=== PATIENT | female | born 1955 | race Caucasian/White ===

== ENCOUNTER 2021-09-24 12:25 | Inpatient (IN) | payer BC, OTHER ==
[2021-09-24 12:54] LABS: Glucose,Whole Blood 86 mg/dL (70-110)
[2021-09-24 13:08] LABS: Basophils # (A) 0.1 k/uL (0-0.2); Basophils % (A) 1 %; Eosinophils # (A) 0.2 k/uL (0-0.7); Eosinophils % (A) 3 %; HCT 46.5 % (34.0-46.0); HGB 15.3 gm/dL (11.4-16.0); Lymphocytes # (A) 2.5 k/uL (1.0-4.8); Lymphocytes % (A) 32 %; MCH 29.6 pg (25.0-35.0); MCHC 32.9 g/dL (31.0-37.0); MCV 90.2 fL (80.0-100.0); Mean Platelet Volume 6.9; Monocytes # (A) 0.3 k/uL (0-1.0); Monocytes % (A) 4 %; Neutrophils # (A) 4.4 k/uL (1.3-7.7); Neutrophils % (A) 58 %; Platelet Count 304 k/uL (150-450); RBC 5.15 m/uL (3.80-5.40); RDW 12.7 % (11.5-15.5); WBC 7.7 k/uL (3.8-10.6)
[2021-09-24 13:23] LABS: Albumin 4.8 g/dL (3.5-5.0); Calcium 9.5 mg/dL (8.4-10.2); Potassium 4.8 mmol/L (3.5-5.1); Total Bilirubin 0.7 mg/dL (0.2-1.3); Total Protein 7.6 g/dL (6.3-8.2)
[2021-09-24 13:25] LABS: INR 0.9 (<1.2); Partial Thromboplastin Time 25.3 sec (22.0-30.0)
--- NOTE | 2021-09-24 13:38 | CT ---
EXAMINATION TYPE: CT brain wo con for TPA CT DLP: 1059 mGycm, Automated exposure control for dose reduction was used. DATE OF EXAM: 09/24/2021 1:03 PM COMPARISON: None. CLINICAL INDICATION:Female, 65 years old with history of Neuro deficit, acute, stroke suspected, incr eased confusion since 10 AM this morning TECHNIQUE: Brain: Multiple axial CT images of the brain were obtained without IV contrast. FINDINGS: Brain: Extra-axial spaces: No abnormal extra-axial fluid collections. Ventricular system: Within normal limits Cerebral parenchyma: No acute intraparenchymal hemorrhage or mass effect. The holliday-white junction is well differentiated. Cerebellum: Unremarkable. Mass effect: No evidence of midline shift. Intracranial vasculature: Atherosclerotic calcifications of the intracranial vessels. Soft tissues: Normal. Calvarium/osseous structures: No depressed skull fracture. Paranasal sinuses and mastoid air cells: Mild scattered paranasal sinus disease. Visualized orbits: Orbital contents are intact. IMPRESSION: No acute intracranial process.
[2021-09-24 13:39] LABS: Appearance,Urine Clear (Clear); Bilirubin,Urine Negative (Negative); Blood,Urine Negative (Negative); Color,Urine Colorless; Glucose,Urine (UA) Negative (Negative); Ketones,Urine Negative (Negative); Leukocyte Esterase,Urine Negative (Negative); Nitrite,Urine Negative (Negative); Protein,Urine Negative (Negative); Specific Gravity,Urine 1.013 (1.001-1.035); Urobilinogen,Urine <2.0 mg/dL (<2.0)
--- NOTE | 2021-09-24 13:41 | XR ---
EXAMINATION TYPE: XR chest 2V DATE OF EXAM: 09/24/2021 1:07 PM COMPARISON: None TECHNIQUE: XR chest 2V Frontal and lateral views of the chest. CLINICAL INDICATION:Female, 65 years old with history of altered mental status; FINDINGS: Lungs/Pleura: There is no evidence of pleural effusion, focal consolidation, or pneumothorax. Pulmonary vascularity: Unremarkable. Heart/mediastinum: Cardiomediastinal silhouette is unremarkable. Musculoskeletal: No acute osseous pathology. IMPRESSION: No acute cardiopulmonary disease/process.
--- NOTE | 2021-09-24 13:54 | ED ---
General Adult HPI - General Chief complaint: Altered Mental Status Stated complaint: confusion Time Seen by Provider: 09/24/21 12:37 Source: patient, RN notes reviewed, old records reviewed Mode of arrival: ambulatory Limitations: no limitations - History of Present Illness Initial comments: She is a 65-year-old female with a syncopal past medical history who presents to the emergency Department complaining of difficulty with word finding. She has no past medical history. Is not on blood thinners. Denies trauma. Last known well was last night around 2300 or 0100. This was approximately 12 hours ago. Patient states she has felt okay this morning but did not talk with anyone. Initially she started to try to talk to someone at approximately 10 AM, she noticed that she was having difficulty with word finding. Family noticed that as well then, however uncertain if she had it before then when she awoke at 8 AM, as she does not speak with anyone until 10 AM. She denies any headache, weakness, numbness. Denies chest pain, shortness breath, abdominal pain, nausea, vomiting. Does smoke a small amount of marijuana last night which is not abnormal for her. The only significant past medical history is intermittent vertiginous episodes over the last 6 months to one year. No recent ones per patient. History is obtained from patient as well as family members are at bedside. - Related Data Home Medications Medication Instructions Recorded Confirmed No Known Home Medications 09/24/21 09/24/21 Allergies Allergy/AdvReac Type Severity Reaction Status Date / Time No Known Allergies Allergy Verified 09/24/21 13:36 Review of Systems ROS Statement: Those systems with pertinent positive or pertinent negative responses have been documented in the HPI. Review of Systems: CONST: Denies fever EYES: Denies blurry vision ENT: Denies nasal congestion C/V: Denies Chest pain RESP: Denies shortness of breath GI: Denies abdominal pain : Denies dysuria SKIN: Denies rash. MSK: Denies joint pain. NEURO: Denies headache ROS Other: All systems not noted in ROS Statement are negative. Past Medical History Past Medical History: No Reported History History of Any Multi-Drug Resistant Organisms: None Reported Past Surgical History: No Surgical Hx Reported Past Psychological History: No Psychological Hx Reported Smoking Status: Current every day smoker Past Alcohol Use History: None Reported Past Drug Use History: Marijuana General Exam - General Exam Comments Initial Comments: General: Appears in no acute distress. HEAD: Normal with no signs of head trauma. EYES: PERRLA, EOMI, conjunctiva normal, no discharge. pupils are 3 mm equal bilaterally. ENT: Hearing grossly intact, normal oropharynx. RESPIRATORY: Clear breath sounds bilaterally. No wheezes, rales, or rhonchi. C/V: Regular rate and rhythm. S1 and S2 auscultated, no edema, peripheral pulses 2+ and intact throughout ABD: Abd is soft, nontender, nondistended EXT: Normal range of motion, no obvious deformity SKIN: No rashes or lesions observed on exposed skin. NEURO: Alert and oriented x 4. Cranial nerves II-XII intact. No focal sensory or strength deficits. NIH of 2, 1 point for aphasia, 1 point for unable to answer age. Able to ambulate without issue. Limitations: no limitations Course Vital Signs 09/24/21 09/24/21 09/24/21 12:33 14:00 16:00 Temperature 98.2 F Pulse Rate 72 65 70 Respiratory 18 18 18 Rate Blood Pressure 146/74 124/84 124/61 O2 Sat by Pulse 99 96 96 Oximetry 09/24/21 17:03 Temperature Pulse Rate 64 Respiratory 18 Rate Blood Pressure 132/81 O2 Sat by Pulse 96 Oximetry Medical Decision Making - Medical Decision Making Based on the patient's presentation and physical exam, I'm concerned for possible stroke and the patient. Last known well was at [id number] last night when she went to sleep. Woke up with an NIH of 2 discovered at 10 AM. No trauma. No blood thinners. Patient is not TPA candidate as risks far outweigh the benefits at this point. Code stroke was activated. Point of care blood sugar was within normal limits. I spoke with Dr. Amaral of neuro critical care who is in agreement this plan. Vital signs are within normal limits. EKG shows no signs of acute ischemia. CT brain shows no intracranial process. Chest x-ray reveals no acute cardiopulmonary process. Laboratory studies are remarkable for an undetectable troponin. UDS is positive for marijuana. No other findings. CT angiogram reveals an occluded right common carotid as well as left internal carotid artery. I discussed the findings with the neuro interventional was on- call, Dr. Amaral. He reviewed the images himself. Believes these are chronic findings. There are no intracranial findings other than the carotid artery findings. States there is no acute intervention to be done at this time. Recommended medical management with aspirin, Brilinta, statin therapy. Recommended admission for neurology evaluation. Recommended follow-up with the neuro interventional's group outpatient. Patient was bolused aspirin and Brilinta and started on a statin as well as twice a day Brilinta and daily aspirin. I updated the patient of the findings on imaging. NIH is improved to 1 at this time, for mild aphasia, with difficul ty with word finding and object identification. I discussed admission for MRI and neuro eval. She was in agreement with this plan.Vital signs remained within normal limits throughout her stay in the department. I spoke with Dr. Prather of neurology on-call who was in agreement with the consult and the plan. I spoke with the admitting physician, Dr. Parra of some physician group who accepted the patient. Patient was admitted in stable condition to a telemetry bed. Continue neurological checks. I did the family and extensively answered any questions that they had. They were in agreement w ith this plan. - Lab Data Result diagrams: 09/24/21 12:56 09/24/21 12:56 Lab Results 09/24/21 09/24/21 09/24/21 Range/Units 12:53 12:56 12:56 WBC 7.7 (3.8-10.6) k/uL RBC 5.15 (3.80-5.40) m/uL Hgb 15.3 (11.4-16.0) gm/dL Hct 46.5 H (34.0-46.0) % MCV 90.2 (80.0-100.0) fL MCH 29.6 (25.0-35.0) pg MCHC 32.9 (31.0-37.0) g/dL RDW 12.7 (11.5-15.5) % Plt Count 304 (150-450) k/uL MPV 6.9 Neutrophils % 58 % Lymphocytes % 32 % Monocytes % 4 % Eosinophils % 3 % Basophils % 1 % Neutrophils # 4.4 (1.3-7.7) k/uL Lymphocytes # 2.5 (1.0-4.8) k/uL Monocytes # 0.3 (0-1.0) k/uL Eosinophils # 0.2 (0-0.7) k/uL Basophils # 0.1 (0-0.2) k/uL PT 10.0 (9.0-12.0) sec INR 0.9 (<1.2) APTT 25.3 (22.0-30.0) sec Sodium (137-145) mmol/L Potassium (3.5-5.1) mmol/L Chloride (98-107) mmol/L Carbon Dioxide (22-30) mmol/L Anion Gap mmol/L BUN (7-17) mg/dL Creatinine (0.52-1.04) mg/dL Est GFR (CKD-EPI)AfAm (>60 ml/min/1.73 sqM) Est GFR (CKD-EPI)NonAf (>60 ml/min/1.73 sqM) Glucose (74-99) mg/dL POC Glucose (mg/dL) 86 (70-110) mg/dL POC Glu Emblem Maker ID Artie Silva Calcium (8.4-10.2) mg/dL Total Bilirubin (0.2-1.3) mg/dL AST (14-36) U/L ALT (4-34) U/L Alkaline Phosphatase (38-126) U/L Ammonia (<30) umol/L Troponin I (0.000-0.034) ng/mL Total Protein (6.3-8.2) g/dL Albumin (3.5-5.0) g/dL Urine Color Urine Appearance (Clear) Urine pH (5.0-8.0) Ur Specific [place] (1.001-1.035) Urine Protein (Negative) Urine Glucose (UA) (Negative) Urine Ketones (Negative) Urine Blood (Negative) Urine Nitrite (Negative) Urine Bilirubin (Negative) Urine Urobilinogen (<2.0) mg/dL Ur Leukocyte Esterase (Negative) Urine Opiates Screen (NotDetected) Ur Oxycodone Screen (NotDetected) Urine Methadone Screen (NotDetected) Ur Propoxyphene Screen (NotDetected) Ur Barbiturates Screen (NotDetected) U Tricyclic Antidepress (NotDetected) Ur Phencyclidine Scrn (NotDetected) Ur Amphetamines Screen (NotDetected) U Methamphetamines Scrn (NotDetected) U Benzodiazepines Scrn (NotDetected) Urine Cocaine Screen (NotDetected) U Marijuana (THC) Screen (NotDetected) 09/24/21 09/24/21 09/24/21 Range/Units 12:56 12:56 12:56 WBC (3.8-10.6) k/uL RBC (3.80-5.40) m/uL Hgb (11.4-16.0) gm/dL Hct (34.0-46.0) % MCV (80.0-100.0) fL MCH (25.0-35.0) pg MCHC (31.0-37.0) g/dL RDW (11.5-15.5) % Plt Count (150-450) k/uL MPV Neutrophils % % Lymphocytes % % Monocytes % % Eosinophils % % Basophils % % Neutrophils # (1.3-7.7) k/uL Lymphocytes # (1.0-4.8) k/uL Monocytes # (0-1.0) k/uL Eosinophils # (0-0.7) k/uL Basophils # (0-0.2) k/uL PT (9.0-12.0) sec INR (<1.2) APTT (22.0-30.0) sec Sodium 139 (137-145) mmol/L Potassium 4.8 (3.5-5.1) mmol/L Chloride 106 (98-107) mmol/L Carbon Dioxide 25 (22-30) mmol/L Anion Gap 8 mmol/L BUN 14 (7-17) mg/dL Creatinine 0.94 (0.52-1.04) mg/dL Est GFR (CKD-EPI)AfAm 75 (>60 ml/min/1.73 sqM) Est GFR (CKD-EPI)NonAf 65 (>60 ml/min/1.73 sqM) Glucose 91 (74-99) mg/dL POC Glucose (mg/dL) (70-110) mg/dL POC Glu Emblem Maker ID Calcium 9.5 (8.4-10.2) mg/dL Total Bilirubin 0.7 (0.2-1.3) mg/dL AST 20 (14-36) U/L ALT 15 (4-34) U/L Alkaline Phosphatase 129 H (38-126) U/L Ammonia <9 (<30) umol/L Troponin I <0.012 (0.000-0.034) ng/mL Total Protein 7.6 (6.3-8.2) g/dL Albumin 4.8 (3.5-5.0) g/dL Urine Color Urine Appearance (Clear) Urine pH (5.0-8.0) Ur Specific [place] (1.001-1.035) Urine Protein (Negative) Urine Glucose (UA) (Negative) Urine Ketones (Negative) Urine Blood (Negative) Urine Nitrite (Negative) Urine Bilirubin (Negative) Urine Urobilinogen (<2.0) mg/dL Ur Leukocyte Esterase (Negative) Urine Opiates Screen (NotDetected) Ur Oxycodone Screen (NotDetected) Urine Methadone Screen (NotDetected) Ur Propoxyphene Screen (NotDetected) Ur Barbiturates Screen (NotDetected) U Tricyclic Antidepress (NotDetected) Ur Phencyclidine Scrn (NotDetected) Ur Amphetamines Screen (NotDetected) U Methamphetamines Scrn (NotDetected) U Benzodiazepines Scrn (NotDetected) Urine Cocaine Screen (NotDetected) U Marijuana (THC) Screen (NotDetected) 09/24/21 Range/Units 13:14 WBC (3.8-10.6) k/uL RBC (3.80-5.40) m/uL Hgb (11.4-16.0) gm/dL Hct (34.0-46.0) % MCV (80.0-100.0) fL MCH (25.0-35.0) pg MCHC (31.0-37.0) g/dL RDW (11.5-15.5) % Plt Count (150-450) k/uL MPV Neutrophils % % Lymphocytes % % Monocytes % % Eosinophils % % Basophils % % Neutrophils # (1.3-7.7) k/uL Lymphocytes # (1.0-4.8) k/uL Monocytes # (0-1.0) k/uL Eosinophils # (0-0.7) k/uL Basophils # (0-0.2) k/uL PT (9.0-12.0) sec INR (<1.2) APTT (22.0-30.0) sec Sodium (137-145) mmol/L Potassium (3.5-5.1) mmol/L Chloride (98-107) mmol/L Carbon Dioxide (22-30) mmol/L Anion Gap mmol/L BUN (7-17) mg/dL Creatinine (0.52-1.04) mg/dL Est GFR (CKD-EPI)AfAm (>60 ml/min/1.73 sqM) Est GFR (CKD-EPI)NonAf (>60 ml/min/1.73 sqM) Glucose (74-99) mg/dL POC Glucose (mg/dL) (70-110) mg/dL POC Glu Emblem Maker ID Calcium (8.4-10.2) mg/dL Total Bilirubin (0.2-1.3) mg/dL AST (14-36) U/L ALT (4-34) U/L Alkaline Phosphatase (38-126) U/L Ammonia (<30) umol/L Troponin I (0.000-0.034) ng/mL Total Protein (6.3-8.2) g/dL Albumin (3.5-5.0) g/dL Urine Color Colorless Urine Appearance Clear (Clear) Urine pH 6.0 (5.0-8.0) Ur Specific [place] 1.013 (1.001-1.035) Urine Protein Negative (Negative) Urine Glucose (UA) Negative (Negative) Urine Ketones Negative (Negative) Urine Blood Negative (Negative) Urine Nitrite Negative (Negative) Urine Bilirubin Negative (Negative) Urine Urobilinogen <2.0 (<2.0) mg/dL Ur Leukocyte Esterase Negative (Negative) Urine Opiates Screen Not Detected (NotDetected) Ur Oxycodone Screen Not Detected (NotDetected) Urine Methadone Screen Not Detected (NotDetected) Ur Propoxyphene Screen Not Detected (NotDetected) Ur Barbiturates Screen Not Detected (NotDetected) U Tricyclic Antidepress Not Detected (NotDetected) Ur Phencyclidine Scrn Not Detected (NotDetected) Ur Amphetamines Screen Not Detected (NotDetected) U Methamphetamines Scrn Not Detected (NotDetected) U Benzodiazepines Scrn Not Detected (NotDetected) Urine Cocaine Screen Not Detected (NotDetected) U Marijuana (THC) Screen Detected H (NotDetected) - EKG Data -: EKG Interpreted by Nc EKG Comments: 12-lead Electrocardiogram Interpretation Note EKG was reviewed and interpreted by myself. 12-lead ECG performed at 1331 is interpreted by me as revealing and incomplete right bundle branch block at a rate of 66 beats per minute. [place] is normal. VT interval is 136 seconds, QRS duration is 101 ms, QTc is 412 ms.. There were no ST or T wave abnormalities to suggest myocardial ischemia or injury. R wave progression across the precordium was satisfactory. By my interpretation this EKG is non-diagnostic for acute ischemia. Critical Care Time Critical Care Time: Yes Total Critical Care Time: 35 Critical Care Time: Upon my evaluation, this patient had a high probability of imminent or life- threatening deterioration due to stroke pager activation, CVA, which required my direct attention, intervention, and personal management. I have personally provided 35 minutes of critical care time exclusive of time spent on separately billable procedures. Time includes review of laboratory data, radiology results, discussion with consultants, and monitoring for potential decompensation. Interventions were performed as documented in my note. Disposition Clinical Impression: CVA (cerebral vascular accident), Aphasia, Carotid occlusion, bilateral Disposition: ADMITTED IP TO THIS [facility] Condition: Serious Time of Disposition: 15:00
[2021-09-24 13:55] LABS: Amphetamine Screen,Urine Not Detected (NotDetected); Barbiturate Screen,Urine Not Detected (NotDetected); Benzodiazepines Screen,Urine Not Detected (NotDetected); Cocaine Screen,Urine Not Detected (NotDetected); Methadone Screen, Urine Not Detected (NotDetected); Opiate Screen,Urine Not Detected (NotDetected); Oxycodone Screen, Urine Not Detected (NotDetected); Phencyclidine Screen,Urine Not Detected (NotDetected); Tricyclic Antidepressant,Urine Not Detected (NotDetected); Urn Cannabinoid Scrn Detected (NotDetected)
--- NOTE | 2021-09-24 14:26 | CT ---
EXAMINATION TYPE: CT angio head neck CT DLP: 337 mGycm, Automated exposure control for dose reduction was used. DATE OF EXAM: 09/24/2021 1:44 PM COMPARISON: CT brain same day.. CLINICAL INDICATION:Female, 65 years old with history of Neuro deficit, acute, stroke suspected incre ased confusion since 10 AM this morning TECHNIQUE: Axially acquired helical CT angiogram of the head and neck was obtained with contrast util izing 65 cc of Isovue-370 administered intravenously. Axial images are supplemented with 3D reconstru ctions which were post-processed at an independent workstation. NASCET criteria used. FINDINGS: CTA HEAD: No evidence of acute intracranial hemorrhage, mass effect, or midline shift. The ventricles, sulci, a nd cisterns are unremarkable. The visualized portions middle cerebral arteries, anterior cerebral arteries, and posterior cerebral arteries are patent. The basilar and vertebral arteries are patent. CTA NECK: Right Carotid System: The right common carotid artery is occluded extending just past its origin to the bifurcation. There is likely backfilling of the internal carotid artery to the [place]. External carotid artery is patent. Left Carotid System: Occluded left internal carotid artery extending from its origin into the intracranial portion. The an terior communicating Vertebral arteries are patent without evidence hemodynamically significant stenosis. There is a three-vessel aortic arch. The origins of the great vessels are patent. No evidence of hemo dynamically significant stenosis. Mild paraseptal emphysema changes in the lung apices. IMPRESSION: 1. Occluded right common carotid artery extending from its origin to the bifurcation and likely backf illing through the [place] to the internal carotid artery and external carotid artery. 2. Occluded left internal carotid artery extending a from its origin to the intracranial portion. 3. The vertebral arteries are patent.
[2021-09-24] MEDS ORDERED: ASPIRIN 325 MG TAB PO STA (15:25)
[2021-09-24] MEDS ORDERED: TICAGRELOR 90 MG TAB PO STA (15:28)
[2021-09-24] MEDS: ATORVASTATIN 40 MG TAB PO SCH (16:19)
--- NOTE | 2021-09-24 16:32 | P.HPIM ---
History of Present Illness History of Physical illness 65 years old female who does not take any regular home medications, has history of smoking more than 1 pack a day for last 40 years, was never diagnosed with COPD or any bleeding issues in the past, apparently was at home with , she was noted to have some word finding difficulty which was significant when the symptoms started this morning and then later on her symptoms are getting better but she still has some word finding difficulty no neurologically significant symptoms otherwise, patient came to ER for evaluation, patient had CT head CT angiography head and neck done in emergency department, CT head showed no acute intracranial process. CT angiogram head and neck showed bilateral carotid artery occlusion, by the time I evaluated the patient in emergency department she was not having any major speaking difficulty but she was still having some word finding difficulties. Patient continues to smoke 1-1-1/2 pack a day cigarettes for more than 40 years, she also smokes marijuana doesn't drink lives with family, she is being admitted to the hospital medicine service for further workup and neurological evaluation Review of system. 14 point review of system was done in detail and is negative except as above in HPI. Physical examination General: non toxic, no acute distress, alert oriented to time place and person Head: atraumatic, normocephalic, symmetric Eyes: no lid lesion], anicteric sclera Mouth: no lip lesion, mucus membranes moist Cardiovascular: S1S2 reg rate and rhythm, no murmur, no gallop Lungs: Bilateral equal air entry, no wheezing no rhonchi no crackles. Abdominal: soft, nontender to palpation, no guarding, no appreciable organomegaly Ext: no gross muscle atrophy, no edema extremities warm to suppose a positive Neuro: Alert oriented to time place and person, exam grossly nonfocal Psych: Mood and affect appropriate, patient not so certain Skin exam: No rashes no jaundice. Assessment and plan Acute ischemic CVA/TIA Cannot exclude CVA, patient still having some symptoms, CT head was negative We'll get MRI had an echocardiogram Starting patient on aspirin brilinta and statin Continue cardiac telemetry Check TSH hemoglobin A1c lipid panel We'll request neurology consultation and vascular surgery consultation as below Carotid artery disease Bilateral carotid artery occlusion per CT angiogram head and neck We'll request vascular surgery evaluation Tobacco abuse Appropriate counseling done, encourage patient to quit smoking Marijuana use Patient smokes half joint a day per daughter at bedside, encouraged to quit smoking CODE STATUS: Full code DVT prophylaxis: Subcutaneous heparin Discharge plan: Pending clinical improvement and workup, will need neurology service before discharge Past Medical History Past Medical History: No Reported History History of Any Multi-Drug Resistant Organisms: None Reported Past Surgical History: No Surgical Hx Reported Past Psychological History: No Psychological Hx Reported Smoking Status: Current every day smoker Past Alcohol Use History: None Reported Past Drug Use History: Marijuana Medications and Allergies Home Medications Medication Instructions Recorded Confirmed Type No Known Home Medications 09/24/21 09/24/21 History Allergies Allergy/AdvReac Type Severity Reaction Status Date / Time No Known Allergies Allergy Verified 09/24/21 13:36 Physical Exam Vitals: Vital Signs Temp Pulse Resp BP Pulse Ox 09/24/21 16:00 70 18 124/61 96 09/24/21 12:33 98.2 F 72 18 146/74 99 Intake and Output 09/24/21 09/24/21 09/24/21 06:59 14:59 22:59 Other: Weight 60.328 kg Results CBC & Chem 7: 09/24/21 12:56 09/24/21 12:56 Labs: Abnormal Lab Results - Last 24 Hours (Table) 09/24/21 09/24/21 09/24/21 Range/Units 12:56 12:56 13:14 Hct 46.5 H (34.0-46.0) % Alkaline Phosphatase 129 H (38-126) U/L U Marijuana (THC) Screen Detected H (NotDetected)
[2021-09-24] MEDS: TICAGRELOR 90 MG TAB PO SCH (20:45)
[2021-09-25 05:29] LABS: Glucose,Whole Blood 89 mg/dL (70-110)
[2021-09-25] MEDS ORDERED: SODIUM CHLORIDE 0.9% 500 ML 500 ML IV ONE (05:42)
--- NOTE | 2021-09-25 06:31 | CT ---
EXAMINATION TYPE: CT brain wo con DATE OF EXAM: 09/25/2021 HISTORY: Acute onset neuro deficits. Increased confusion.. CT DLP: 1070.4 mGycm. Automated Exposure Control for Dose Reduction was Utilized. TECHNIQUE: CT scan of the head is performed without contrast. COMPARISON: CT brain one day earlier. FINDINGS: There is no acute intracranial hemorrhage or midline shift identified. Ventricles and sul ci are normal in size for patient's age. Jiménez-white matter differentiation maintained. The globes ar e intact and the visualized sinuses remain clear. IMPRESSION: Unremarkable study. No significant change from prior.
[2021-09-25 08:01] LABS: Basophils % (A) 1 %; Eosinophils # (A) 0.2 k/uL (0-0.7); Eosinophils % (A) 4 %; HCT 41.1 % (34.0-46.0); HGB 13.4 gm/dL (11.4-16.0); Lymphocytes # (A) 1.3 k/uL (1.0-4.8); Lymphocytes % (A) 21 %; MCH 29.6 pg (25.0-35.0); MCHC 32.7 g/dL (31.0-37.0); MCV 90.5 fL (80.0-100.0); Mean Platelet Volume 6.9; Monocytes # (A) 0.3 k/uL (0-1.0); Monocytes % (A) 5 %; Neutrophils # (A) 4.3 k/uL (1.3-7.7); Neutrophils % (A) 68 %; Platelet Count 264 k/uL (150-450); RBC 4.54 m/uL (3.80-5.40); RDW 12.8 % (11.5-15.5); WBC 6.3 k/uL (3.8-10.6)
[2021-09-25 08:06] LABS: Calcium 8.5 mg/dL (8.4-10.2); Potassium 4.2 mmol/L (3.5-5.1)
[2021-09-25 09:49] LABS: Chol/HDL Ratio 3.97 Ratio; LDL Cholesterol,Calculated 159.4 mg/dL (0.0-131.0)
[2021-09-25] MEDS: HEPARIN SODIUM,PORCINE/PF 5,000 UNIT/0.5 ML SYRINGE SQ SCH ×3 (10:18→23:30)
[2021-09-25] MEDS: ATORVASTATIN 40 MG TAB PO SCH (10:18)
[2021-09-25] MEDS: TICAGRELOR 90 MG TAB PO SCH ×2 (10:18→20:42)
[2021-09-25] MEDS: ASPIRIN 81 MG PO SCH (10:18)
--- NOTE | 2021-09-25 10:54 | P.PN ---
Subjective Patient was examined at bedside with . Overnight patient started to develop a fascia with right-sided drooling. A stat computed tomography scan was ordered which was unremarkable. Patient continues to have the same deficits she is able to understand follow my commands however unable to speak. She does unfortunately feel somewhat frustrated. Muscle strength is 45 both upper and lower extremity. MRI has been ordered and pending changed to stat. We have also waiting on neurology recommendations. Objective - Vital Signs Vital signs: Vital Signs Temp 97.9 F 09/25/21 08:00 Pulse 61 09/25/21 08:00 Resp 16 09/25/21 08:00 BP 128/68 09/25/21 08:00 Pulse Ox 97 09/25/21 08:00 FiO2 Intake & Output 09/24/21 09/25/21 09/25/21 18:59 06:59 18:59 Intake Total 540 Balance 540 Weight 59 kg Intake: Oral 540 Other: # Voids 2 - Exam General: Patient seems nontoxic however a phasic and looks frustrated Head: atraumatic, normocephalic, symmetric Eyes: no lid lesion], anicteric sclera Mouth: Drooling from the right side Cardiovascular: S1S2 reg rate and rhythm, no murmur, no gallop Lungs: Bilateral equal air entry, no wheezing no rhonchi no crackles. Abdominal: soft, nontender to palpation, no guarding, no appreciable organomegaly Ext: no gross muscle atrophy, no edema extremities warm to suppose a positive Neuro: -Patient is completely a phasic however able to understand -Muscle strength 5 out of 5 upper and lower extremity -No sensory abnormalities noted -Gait was not assessed due to safety -Right-sided facial drool noted very minimal droop if any. -Psych: Seems very frustrated - Labs CBC & Chem 7: 09/25/21 07:40 09/25/21 07:40 Labs: Abnormal Lab Results - Last 24 Hours (Table) 09/24/21 09/24/21 09/24/21 Range/Units 12:56 12:56 12:56 Hct 46.5 H (34.0-46.0) % Chloride (98-107) mmol/L Alkaline Phosphatase 129 H (38-126) U/L Triglycerides 153.00 H (0.00-149.00) mg/dL Cholesterol 254.00 H (0.00-200.00) mg/dL LDL Cholesterol, Calc 159.4 H (0.0-131.0) mg/dL HDL Cholesterol 64.00 H (40.00-60.00) mg/dL U Marijuana (THC) Screen (NotDetected) 09/24/21 09/25/21 Range/Units 13:14 07:40 Hct (34.0-46.0) % Chloride 109 H (98-107) mmol/L Alkaline Phosphatase (38-126) U/L Triglycerides (0.00-149.00) mg/dL Cholesterol (0.00-200.00) mg/dL LDL Cholesterol, Calc (0.0-131.0) mg/dL HDL Cholesterol (40.00-60.00) mg/dL U Marijuana (THC) Screen Detected H (NotDetected) Assessment and Plan Assessment: Acute ischemic CVA/TIA CT repeat was completed no acute changes noted Patient is getting MRI completed right now 2-D echocardiogram Starting patient on aspirin brilinta and statin Continue cardiac telemetry Check TSH hemoglobin A1c 5.4 lipid panel reviewed LDL target less than 100 Pending evaluation by neurology and vascular surgery PT/OT, nothing by mouth for now swallow evaluation/speech therapy Carotid artery disease Bilateral carotid artery occlusion per CT angiogram head and neck We'll request vascular surgery evaluation Tobacco abuse Appropriate counseling done, encourage patient to quit smoking Marijuana use Patient smokes half joint a day per daughter at bedside, encouraged to quit smoking Hyperlipidemia Continue with high intensity statin CODE STATUS: Full code DVT prophylaxis: Subcutaneous heparin Discharge plan: Pending clinical improvement and workup, will need neurology service before discharge
--- NOTE | 2021-09-25 11:04 | MR ---
EXAMINATION TYPE: MR brain wo con DATE OF EXAM: 09/25/2021 COMPARISON: CT brain from yesterday and today. HISTORY: Neuro deficit, acute, stroke suspected TECHNIQUE: Multiplanar, multisequence imaging of the brain and brainstem is performed without IV cont rast. FINDINGS: Diffusion weighted images demonstrate areas of increased signal on diffusion weighted images with dim inished signal on ADC mapping involving the left frontal lobe being somewhat wedge-shaped having T2 h yperintensity measuring approximately 3.5 x 3.8 cm axial image 168. Additional smaller subcortical ar ea of increased signal on diffusion-weighted images with increased signal on FLAIR imaging and some a reas of diminished signal ADC mapping involving the central left frontal lobe along the interhemisphe karla fissure. Findings are consistent with evolving acute infarcts. The ventricular system and cisternal spaces are normal in size and appearance. The brain volume is a ge appropriate. Small scattered foci of T2 hyperintensity is seen throughout the white matter bilater ally. Approximately 20-25 scattered small lesions are seen. Lesions are nonspecific in appearance and distribution. Midline structures demonstrate normal morphology. The craniocervical junction appears within normal limits. Normal vascular flow voids are present. The visualized sinuses are clear and the globes are i ntact. IMPRESSION: 1. There are 2 evolving infarcts in the left frontal lobe, one in the anterior watershed region, seco nd more anteriorly along the anterior interhemispheric fissure. 2. Background of mild chronic small vessel ischemic changes are present.
--- NOTE | 2021-09-25 11:13 | CA ---
Transthoracic Echo Report Name: Mehran Aguirre Age: 65 Gender: F : 1955 Exam Date: 09/25/2021 09:31 Exam Location: [facility] Ht (in): 66 Wt (lb): 130 Ordering Physician: Pedro Pablo Parra MD Attending/Referring Phys: Retail Supervisor Deanna Rosado RDCS Procedure CPT: Indications: CVA Cardiac Hx: smoker Technical Quality: Good Contrast 1: Total Dose (mL): Contrast 2: Total Dose (mL): MEASUREMENTS (Male / Female) Normal Values 2D ECHO LV Diastolic Diameter PLAX 3.4 cm 4.2 - 5.9 / 3.9 - 5.3 cm LV Systolic Diameter PLAX 1.9 cm IVS Diastolic Thickness 0.7 cm 0.6 - 1.0 / 0.6 - 0.9 cm LVPW Diastolic Thickness 0.8 cm 0.6 - 1.0 / 0.6 - 0.9 cm LV Relative Wall Thickness 0.5 M-MODE Aortic Root Diameter MM 3.1 cm LA Systolic Diameter MM 3.0 cm LA Ao Ratio MM 1.0 MV E Point Septal Separation 1.6 cm AV Cusp Separation MM 1.9 cm DOPPLER AV Peak Velocity 90.4 cm/s AV Peak Gradient 3.3 mmHg MV Area PHT 4.0 cm??? MR Peak Velocity 185.3 cm/s MR Peak Gradient 13.7 mmHg Mitral E Point Velocity 95.0 cm/s Mitral A Point Velocity 52.9 cm/s Mitral E to A Ratio 1.8 MV Deceleration Time 191.8 ms MV E' Velocity 12.5 cm/s Mitral E to MV E' Ratio 7.6 TR Peak Velocity 101.9 cm/s TR Peak Gradient 4.2 mmHg Right Ventricular Systolic Press 9.0 mmHg FINDINGS Left Ventricle Normal Left ventricular size, wall thickness, systolic function with no obvious regional wall motion abnormalities. Normal Left ventricular diastolic filling pattern. Left ventricular ejection fraction is estimated at 55-60 %. Right Ventricle The right ventricle is normal in size and function. Right Atrium The right atrium is normal in size. Left Atrium The left atrium is normal in size. Mitral Valve Structurally normal mitral valve without significant stenosis or prolapse. There is trace mitral regurgitation. Aortic Valve Structurally normal aortic valve without significant sclerosis or stenosis. There is no aortic regurgitation. Tricuspid Valve Structurally normal tricuspid valve without significant stenosis. Pulmonary artery systolic pressure is normal. Trace tricuspid regurgitation. Pulmonic Valve Structurally normal pulmonic valve without significant stenosis. There is no pulmonic regurgitation. Pericardium Normal pericardium without effusion. Aorta Normal aortic root dimension. CONCLUSIONS 1. Normal left ventricle size and systolic function 2. Trace mitral and tricuspid regurgitation 3. No pericardial effusion Previewed by: Dr. Kendall Edmond MD (Electronically Signed) Final Date: 25 September 2021 11:12
--- NOTE | 2021-09-25 13:13 | P.CNNES ---
History of Present Illness Consult date: 09/25/21 Requesting physician: Fabian Jiménez Reason for Consult: cva, suspected chronic carotid occlusions History of Present Illness: Patient is a 65-year-old right-handed female came to the hospital yesterday at 12:25 PM for evaluation of acute onset of expressive aphasia. Patient not able to provide any history. Patient's and daughters were present. Patient was fine the night prior to arrival. Just in the morning with patient's woke up at 9 AM, and noticed that patient already has woken up prior, had made a coffee, was sitting on the couch watching TV. She had knocked off the coffee and was trying to clean it. Patient's felt that he she had just woken up, and did not communicate much all, although patient was speaking only in short sentences, only 2-3 words. He did not make anything out of it. She was not slurring, no problem with mobility or facial droopiness. Patient then went to take a shower, and when she came back, fully dressed and was talking to her mother on the phone, she was having trouble speaking, expressing her words at around 11:30 AM. There was no complaint of chest pain, shortness of breath, abdominal pain, nausea vomiting. They brought her to the hospital. Vital signs arrival blood pressure 146/74, pulse rate [address] head showed no acute process. Chest x-ray showed no acute process. EKG with sinus rhythm, incomplete right bundle branch block. CTA of neck showed occluded right common carotid artery extending from its origin to the bifurcation and likely backfilling through the [place] to the internal carotid artery and external carotid artery. Occluded left internal carotid artery extending from its origin to the intracranial portion. The vertebral arteries are patent. Repeat CT head from this morning showed no acute change. I personally reviewed CT head, agree with the findings. Blood test shows normal CBC, PT/PTT, normal chem 20, In the ED her NIH stroke scale was 2. Patient was considered not a candidate for TPA, as risks far outweigh the benefits at this point. Stroke code was activated. ED staff discuss case with the stroke neurologist Dr. Amaral, and both of them felt patient was not a candidate for TPA. Dr. Amaral reviewed CTA, who felt these are chronic findings. He did not recommend any neuro intervention. Recommended patient to be started on aspirin, Brilinta and statin therapy. Also recommended to follow up with the neuro interventional group as an outpatient. Patient was given aspirin 325 mg and Brilinta 180 mg in the ER at 4:19 PM. Her NIH stroke scale improved to 1 with mild aphasia, difficulty with word finding and object identification. Patient's states that yesterday in the ER she could speak words, was able to tell her name, date of what year it was and what hospital she was in [place]. She was slightly mixed up, as she felt it was [place]. Apparently overnight at around 5:20 PM, patient was noted to have worsening of her speech, became completely mute. No other motor deficits noted otherwise. Patient has smoked 1 pack per day since age 20. No history of hypertension and diabetes, has not been tested for cholesterol. She does not take any medication at home, some vitamins only. No antiplatelets. No history of strokes TIA or NM in the past. Review of Systems Aphasia. ROS unobtainable: due to mental status Past Medical History Past Medical History: No Reported History History of Any Multi-Drug Resistant Organisms: None Reported Past Surgical History: No Surgical Hx Reported Past Anesthesia/Blood Transfusion Reactions: No Reported Reaction Past Psychological History: No Psychological Hx Reported Smoking Status: Current every day smoker Past Alcohol Use History: None Reported Past Drug Use History: Marijuana Medications and Allergies Home Medications Medication Instructions Recorded Confirmed Type No Known Home Medications 09/24/21 09/24/21 History Allergies Allergy/AdvReac Type Severity Reaction Status Date / Time No Known Allergies Allergy Verified 09/24/21 13:36 Physical Examination - Vital Signs Vital Signs: Vital Signs Temp Pulse Pulse Resp BP BP Pulse Ox 09/25/21 08:00 97.9 F 61 16 128/68 97 09/25/21 05:20 62 18 101/59 92 L 09/24/21 23:40 72 17 108/61 97 09/24/21 20:45 98.3 F 59 L 18 113/57 97 09/24/21 17:34 98.3 F 60 18 128/68 99 09/24/21 17:03 64 18 132/81 96 09/24/21 16:00 70 18 124/61 96 09/24/21 14:00 65 18 124/84 96 09/24/21 12:33 98.2 F 72 18 146/74 99 Intake and Output 09/24/21 09/25/21 09/25/21 22:59 06:59 14:59 Intake Total 540 Balance 540 Intake: Oral 540 Other: # Voids 2 Weight 59 kg Patient is a late middle aged female, appears age-appropriate, in no distress. Patient is alert awake. Patient has severe expressive aphasia, mute not able to speak any words, not able to tell me her name, name any object or repeat. Could not say a loud alphabets. Her comprehension appears fairly intact, although did not perfect, as she was able to point to the door, to the window, to the ceiling and show me her thumbs up. Attention, concentration and fund of knowledge is limited to assess because of aphasia. On cranial examination, pupils are equal, round and reacting to light, visual moon are full on confrontation, with no obvious neglect. Her extraocular muscles are intact with no nystagmus. Patient has mild right facial weakness, drooling from the right side. She was not able to protrude her tongue due to apraxia. . Palatal elevation and sensation normal, hearing difficulty assess and shoulder shrug normal, facial sensation normal. On muscle strength testing, there is very mild right pronation, but no drift. Her strength is normal in arms and legs distally and proximally. Deep tendon reflexes are (right/left) since 2+/2, brachioradialis 2+/2, knees 2+/2+, ankles 2/2 and plantar appears upgoing bilaterally. Sensory to touch could not be assessed reliably because of patient's aphasia, and some comprehension issues. Cerebellar function showed no ataxia for [id number] testing. Tone and bulk of muscles normal. Gait not able to be checked. On general examination, there is no carotid bruit or murmur, S1-S2 audible. Abdomen is soft nontender. No organomegaly, bowel sounds present. Chest is clear. Peripheral pulses are present. No edema. Results - Laboratory Findings CBC and BMP: 09/25/21 07:40 09/25/21 07:40 Abnormal Lab Findings: Abnormal Labs 09/24/21 09/24/21 09/24/21 12:56 12:56 12:56 Hct 46.5 H Chloride Alkaline Phosphatase 129 H Triglycerides 153.00 H Cholesterol 254.00 H LDL Cholesterol, Calc 159.4 H HDL Cholesterol 64.00 H U Marijuana (THC) Screen 09/24/21 09/25/21 13:14 07:40 Hct Chloride 109 H Alkaline Phosphatase Triglycerides Cholesterol LDL Cholesterol, Calc HDL Cholesterol U Marijuana (THC) Screen Detected H Assessment and Plan Assessment: * Acute ischemic stroke, left hemispheric region with expressive aphasia. Patient's NIH stroke scale was reported as 2 in the ER. Patient's stroke apparently has progressed overnight, with development of complete expressive aphasia. * Bilateral ICA occlusion. Her NIH stroke scale is 7, mainly due to severe ex pressive aphasia. * Hyperlipidemia * Tobacco use * Marijuana use. Plan: * Patient has been started on aspirin regimen and Brilinta. She was not taking any antiplatelet medication at home. * Telemetry monitoring, rule out arrhythmia. * 2-D echo revealed normal left ventricular size and systolic function. Trace mitral and tricuspid regurgitation. EF is 55-60%. Left atrium size is normal. Bubble study not performed. * Vascular surgery on board for bilateral ICA stenosis. Awaiting recommendations. * Lipid panel with cholesterol 254, LDL 159, HDL 64 triglycerides 153. We will increase Lipitor to 80 mg daily * Vitamin B12 727, TSH normal 4.34. * Hemoglobin A1c 5.4 * Permissive hypertension * MRI of the brain without contrast reported as two evolving infarcts in the left frontal lobe, one in the anterior watershed region, second more anteriorly along the anterior interhemispheric fissure. On my review, it appears there is involvement of the anterior branches of the left MCA, and also involving the left frontal region in the KAVON distribution. * DVT prophylaxis: Heparin subcu 5000 units every 8 hours. * Complete tobacco cessation. * PT OT, speech therapy, stroke rehab. * Discussed with family in detail.
--- NOTE | 2021-09-25 16:54 | P.GSCN ---
History of Present Illness History of present illness: 65-year-old white female patient has acute o occluded nset of if is area expressive no history of embosphere there are motor deficit patient had a stroke workup CT of the brain shows no acute and sulfa intracranial bleed or infarction. CT of the carotids showed occluded right common carotid artery extending from the origin of the bifurcation and most likely filling from [place] of [place] Occluded left internal carotid artery extending from the region to intracranial portion. Both vertebral arteries are patent Medical history no history of diabetes hypertension coronary artery disease Personal history patient has long-standing history of smoking Surgical history patient had a no major surgical intervention done Neck is supple no bruit appreciated Chest is clear first and second sound normal good entry both lungs Abdomen soft nontender Vascular femorals are 1+ bilateral Center system both motor function are normal patient has expressive a fascia Patient is on antiplatelet therapy patient will need speech therapy I have asked Dr. Toño dutton for second opinion discussed with the family they understand follow with you Past Medical History Past Medical History: No Reported History History of Any Multi-Drug Resistant Organisms: None Reported Past Surgical History: No Surgical Hx Reported Past Anesthesia/Blood Transfusion Reactions: No Reported Reaction Past Psychological History: No Psychological Hx Reported Smoking Status: Current every day smoker Past Alcohol Use History: None Reported Past Drug Use History: Marijuana Medications and Allergies Home Medications Medication Instructions Recorded Confirmed Type No Known Home Medications 09/24/21 09/24/21 History Allergies Allergy/AdvReac Type Severity Reaction Status Date / Time No Known Allergies Allergy Verified 09/24/21 13:36 Surgical - Exam Vital Signs Temp Pulse Resp BP Pulse Ox 98.2 F 72 18 146/74 99 09/24/21 12:33 09/24/21 12:33 09/24/21 12:33 09/24/21 12:33 09/24/21 12:33 Results - Labs 09/25/21 07:40 09/25/21 07:40 Abnormal Lab Results - Last 24 Hours (Table) 09/24/21 09/25/21 Range/Units 12:56 07:40 Chloride 109 H (98-107) mmol/L Triglycerides 153.00 H (0.00-149.00) mg/dL Cholesterol 254.00 H (0.00-200.00) mg/dL LDL Cholesterol, Calc 159.4 H (0.0-131.0) mg/dL HDL Cholesterol 64.00 H (40.00-60.00) mg/dL Diabetes panel 09/24/21 09/25/21 09/25/21 Range/Units 12:56 06:54 07:40 Sodium 139 (137-145) mmol/L Potassium 4.2 (3.5-5.1) mmol/L Chloride 109 H (98-107) mmol/L Carbon Dioxide 23 (22-30) mmol/L BUN 11 (7-17) mg/dL Creatinine 0.90 (0.52-1.04) mg/dL Glucose 86 (74-99) mg/dL Hemoglobin A1c 5.4 (0.0-6.0) % Calcium 8.5 (8.4-10.2) mg/dL Triglycerides 153.00 H (0.00-149.00) mg/dL HDL Cholesterol 64.00 H (40.00-60.00) mg/dL Thyroid panel 09/24/21 Range/Units 12:56 TSH 4.340 (0.465-4.680) mIU/L Calcium panel 09/25/21 Range/Units 07:40 Calcium 8.5 (8.4-10.2) mg/dL Pituitary panel 09/24/21 09/25/21 Range/Units 12:56 07:40 Sodium 139 (137-145) mmol/L Potassium 4.2 (3.5-5.1) mmol/L Chloride 109 H (98-107) mmol/L Carbon Dioxide 23 (22-30) mmol/L BUN 11 (7-17) mg/dL Creatinine 0.90 (0.52-1.04) mg/dL Glucose 86 (74-99) mg/dL Calcium 8.5 (8.4-10.2) mg/dL TSH 4.340 (0.465-4.680) mIU/L Adrenal panel 09/25/21 Range/Units 07:40 Sodium 139 (137-145) mmol/L Potassium 4.2 (3.5-5.1) mmol/L Chloride 109 H (98-107) mmol/L Carbon Dioxide 23 (22-30) mmol/L BUN 11 (7-17) mg/dL Creatinine 0.90 (0.52-1.04) mg/dL Glucose 86 (74-99) mg/dL Calcium 8.5 (8.4-10.2) mg/dL
--- NOTE | 2021-09-25 17:54 | CA ---
Transthoracic Echo Report Name: Mehran Aguirre Age: 65 Gender: F : 1955 Exam Date: 09/25/2021 14:38 Exam Location: [facility] Ht (in): 66 Wt (lb): 130 Ordering Physician: Josep Laureano MD Attending/Referring Phys: Supervisor [employer] Deanna Rosado RDCS Procedure CPT: Indications: Limited, to check for bubble study to rule out PFO Cardiac Hx: Technical Quality: Very technically difficult study Contrast 1: Agitated Saline Total Dose (mL): 2 Contrast 2: Total Dose (mL): MEASUREMENTS (Male / Female) Normal Values FINDINGS Left Ventricle Right Ventricle Right Atrium Bubble study performed. Unable to detrermine due to poor images. Left Atrium Mitral Valve Aortic Valve Tricuspid Valve Pulmonic Valve Pericardium Aorta CONCLUSIONS 1. Suboptimal study 2. Bubble study suboptimal no conclusion could be made. Previewed by: Dr. Kendall Edmond MD (Electronically Signed) Final Date: 25 September 2021 17:53
--- NOTE | 2021-09-25 19:03 | CONS ---
CONSULTATION This is a 65-year-old pleasant female. She was seen on consult. Patient came with history of acute aphasia, expressive. Patient has no history of motor deficit or amaurosis fugax. Patient had a complete stroke workup, including CT scan of the brain, which showed no intracranial bleed. The patient had a CTA of the head which showed occluded right common carotid artery extending from the region of the bifurcation and likely filling the internal carotid artery by [place]; and left internal artery occluded, extending from its origin to the intracranial portion. Both vertebral arteries are patent. The patient had an MRI done today which shows a frontal lobe infarction. MEDICAL HISTORY: No history of diabetes, hypertension, coronary artery disease. Personal history: Patient has a long-standing history of smoking, continues to smoke. Surgical history: No previous surgical history. PHYSICAL EXAMINATION: Patient was seen in the room with her daughter. The patient is aphasic. History obtained from the family. NECK: Supple. CHEST: Clear to auscultation. There was good entry in both lungs. First and second sounds normal. ABDOMEN: Soft, nontender. Femorals are present. Normal motor functions. PLAN: The patient was seen by Neurology, who put her on aspirin and Brilinta. The patient needs speech therapy. I have discussed with the patient in detail. I am requesting Dr. Mayo to see her for a second opinion, and he is agreeable. He will see him in the morning. At this point, continue the medical management, control of blood pressure, antiplatelet therapy and speech therapy. Will follow with you. MMODL / IJN: [id number] /
[2021-09-26 07:52] LABS: Basophils # (A) 0.1 k/uL (0-0.2); Basophils % (A) 1 %; Eosinophils # (A) 0.2 k/uL (0-0.7); Eosinophils % (A) 3 %; HCT 42.3 % (34.0-46.0); HGB 14.1 gm/dL (11.4-16.0); Lymphocytes # (A) 1.6 k/uL (1.0-4.8); Lymphocytes % (A) 24 %; MCH 29.9 pg (25.0-35.0); MCHC 33.5 g/dL (31.0-37.0); MCV 89.4 fL (80.0-100.0); Mean Platelet Volume 6.9; Monocytes # (A) 0.3 k/uL (0-1.0); Monocytes % (A) 5 %; Neutrophils # (A) 4.3 k/uL (1.3-7.7); Neutrophils % (A) 66 %; Platelet Count 267 k/uL (150-450); RBC 4.73 m/uL (3.80-5.40); RDW 12.8 % (11.5-15.5); WBC 6.6 k/uL (3.8-10.6)
[2021-09-26 08:08] LABS: Calcium 8.9 mg/dL (8.4-10.2); Potassium 4.5 mmol/L (3.5-5.1)
--- NOTE | 2021-09-26 08:20 | US ---
EXAMINATION TYPE: US carotid duplex BILAT DATE OF EXAM: 09/26/2021 COMPARISON: CTA CLINICAL HISTORY: CVA. Aphasia, CVA EXAM MEASUREMENTS: RIGHT: Peak Systolic Velocity (PSV) cm/sec ----- Right CCA: Occluded ----- Right ICA: 262 ----- Right ECA: 223 Retrograde flow ICA/CCA ratio: - RIGHT: End Diastole cm/sec ----- Right CCA: Occluded ----- Right ICA: 102 ----- Right ECA: 39.6 Retrograde flow LEFT: Peak Systolic Velocity (PSV) cm/sec ----- Left CCA: 90.2 ----- Left ICA: 35.7 ----- Left ECA: 288 ICA/CCA ratio: 0.4 LEFT: End Diastole cm/sec ----- Left CCA: 19.7 ----- Left ICA: 0.0 ----- Left ECA: 34.4 VERTEBRALS (direction of flow): Right Vertebral: Antegrade Left Vertebral: Antegrade Rhythm: Normal Right CCA occluded as visualized on CTA, Retrograde flow within right ECA, trickle flow within left ICA suggesting near occlusion IMPRESSION: 1. Totally occluded right common carotid artery with retrograde flow backfilling the right internal carotid artery. 2. Minimal color Doppler flow within the left internal carotid artery with near occlusion. Criteria for Assigning % of Stenosis / Diameter reduction (Estimation based on the indirect measurements of the internal carotid artery velocities (ICA PSV). 1. Normal (no stenosis)=ICA PSV < 125 cm/s: ratio < 2.0: ICA EDV<40 cm/s. 2. Less than 50% stenosis=ICA PSV < 125 cm/s: ratio < 2.0: ICA EDV<40 cm/s. 3. 50 to 69% stenosis=ICA PSV of 125 to 230 cm/s: ration 2.0 ? 4.0: ICA EDV 40-100 cm/s. 4. Greater than 70% stenosis to near occlusion= ICA PSV > 230 cm/s: ratio > 4.0: ICA EDV > 100 cm/s. 5. Near occlusion= ICA PSV velocities may be low or undetectable: variable ratio and ICA EDV. 6. Total occlusion=unable to detect flow.
[2021-09-26] MEDS: ATORVASTATIN 80 MG TAB PO SCH (08:45)
[2021-09-26] MEDS: HEPARIN SODIUM,PORCINE/PF 5,000 UNIT/0.5 ML SYRINGE SQ SCH ×3 (08:45→23:39)
[2021-09-26] MEDS: ASPIRIN 81 MG PO SCH (08:45)
[2021-09-26] MEDS: TICAGRELOR 90 MG TAB PO SCH ×2 (08:45→20:03)
--- NOTE | 2021-09-26 10:48 | P.GSCN ---
History of Present Illness Consult date: 09/26/21 Reason for Consult: Bilateral carotid stenosis Requesting physician: Junior Adams History of present illness: This a 65-year-old female who had presented to the emergency department 2 days ago brought in by her for concerns of stroke. History is being obtained from chart and nursing staff as patient is currently nonverbal. Apparently the patient was brought in on Saturday afternoon with complaints of inability to be able to find her words. At that time it was reported that she hasn't been verbal on Saturday however her words were garbled and did not make much sense. Yesterday at the nursing staff stated she became nonverbal and was asked to write down responses and writing was in eligible and did not make sense. No other reported focal deficits. Patient currently remains nonverbal, but is able to follow commands. According to the patient's chart she has no reported past medical history. She is a current every day smoker, 1 pack per day since age 20. Also reported that she smokes marijuana regularly and smoked marijuana the night before symptoms began. CT angiogram head and neck reports occluded right common carotid artery extending from its origin to the bifurcation and likely backfilling through the [place] to the internal carotid artery and external carotid artery. Occluded left internal carotid artery extending from its origin to the intracranial portion. Vertebral arteries are patent. Vascular surgeon Dr. Adams was consulted, he consulted vascular surgery Dr. Mayo for second opinion. Patient underwent MRI of the brain with out contrast yesterday showed 2 evolving infarcts in the left frontal lobe. Neurology is following and started patient on aspirin 81 mg, Brilinta 90 mg BID as well as a atorvastatin 80 mg daily. Review of Systems ROS unobtainable: due to mental status Past Medical History Past Medical History: No Reported History History of Any Multi-Drug Resistant Organisms: None Reported Past Surgical History: No Surgical Hx Reported Past Anesthesia/Blood Transfusion Reactions: No Reported Reaction Past Psychological History: No Psychological Hx Reported Smoking Status: Current every day smoker Past Alcohol Use History: None Reported Past Drug Use History: Marijuana Medications and Allergies Home Medications Medication Instructions Recorded Confirmed Type No Known Home Medications 09/24/21 09/24/21 History Allergies Allergy/AdvReac Type Severity Reaction Status Date / Time No Known Allergies Allergy Verified 09/24/21 13:36 Surgical - Exam Vital Signs Temp Pulse Resp BP Pulse Ox 98.2 F 72 18 146/74 99 09/24/21 12:33 09/24/21 12:33 09/24/21 12:33 09/24/21 12:33 09/24/21 12:33 General appearance: The patient is alert, nonverbal, appears in no acute distress. HET: Head is normocephalic and atraumatic. Pupils are equal and reactive. Neck: Supple without lymphadenopathy. Trachea midline. No audible carotid bruit. Heart: S1 S2. Regular rate and rhythm. Lungs: Clear to auscultation bilaterally. Abdomen: Soft, nontender, nondistended. Extremities: Normal skin color and turgor. No cyanosis, rash, ulceration, c lubbing, or edema. Radial and pedal pulses are 2/4 bilaterally. Neurological: The patient is non-verbal. Able to follow simple commands. Unable to protrude tongue, was able to give a slight smile, facial expressions seemed symmetrical. She has good tone and strength of bilateral upper and lower extremities. Results CT angiogram head and neck reports occluded right common carotid artery extending from its origin to the bifurcation and likely backfilling through the [place] to the internal carotid artery and external carotid artery. Occluded left internal carotid artery extending from its origin to the intracranial portion. Vertebral arteries are patent. Brain CT reports unremarkable study. MRI of the brain without contrast showed 2 evolving infarcts in the left frontal lobe one in the anterior watershed region, a second more anteriorly along the anterior interhemispheric fissure, background of mild chronic small vessel ischemic changes present. Echocardiogram normal left ventricle size and systolic function, trace mitral and tricuspid regurgitation no pericardial effusion - Labs 09/26/21 07:14 09/26/21 07:14 Abnormal Lab Results - Last 24 Hours (Table) 09/24/21 09/26/21 Range/Units 12:56 07:14 Sodium 136 L (137-145) mmol/L Triglycerides 153.00 H (0.00-149.00) mg/dL Cholesterol 254.00 H (0.00-200.00) mg/dL LDL Cholesterol, Calc 159.4 H (0.0-131.0) mg/dL HDL Cholesterol 64.00 H (40.00-60.00) mg/dL Diabetes panel 09/24/21 09/25/21 09/26/21 Range/Units 12:56 06:54 07:14 Sodium 136 L (137-145) mmol/L Potassium 4.5 (3.5-5.1) mmol/L Chloride 107 (98-107) mmol/L Carbon Dioxide 23 (22-30) mmol/L BUN 10 (7-17) mg/dL Creatinine 0.83 (0.52-1.04) mg/dL Glucose 85 (74-99) mg/dL Hemoglobin A1c 5.4 (0.0-6.0) % Calcium 8.9 (8.4-10.2) mg/dL Triglycerides 153.00 H (0.00-149.00) mg/dL HDL Cholesterol 64.00 H (40.00-60.00) mg/dL Thyroid panel 09/24/21 Range/Units 12:56 TSH 4.340 (0.465-4.680) mIU/L Calcium panel 09/26/21 Range/Units 07:14 Calcium 8.9 (8.4-10.2) mg/dL Pituitary panel 09/24/21 09/26/21 Range/Units 12:56 07:14 Sodium 136 L (137-145) mmol/L Potassium 4.5 (3.5-5.1) mmol/L Chloride 107 (98-107) mmol/L Carbon Dioxide 23 (22-30) mmol/L BUN 10 (7-17) mg/dL Creatinine 0.83 (0.52-1.04) mg/dL Glucose 85 (74-99) mg/dL Calcium 8.9 (8.4-10.2) mg/dL TSH 4.340 (0.465-4.680) mIU/L Adrenal panel 09/26/21 Range/Units 07:14 Sodium 136 L (137-145) mmol/L Potassium 4.5 (3.5-5.1) mmol/L Chloride 107 (98-107) mmol/L Carbon Dioxide 23 (22-30) mmol/L BUN 10 (7-17) mg/dL Creatinine 0.83 (0.52-1.04) mg/dL Glucose 85 (74-99) mg/dL Calcium 8.9 (8.4-10.2) mg/dL Assessment and Plan Assessment: 1. Occluded right common carotid artery extending from its origin to the bifurcation likely backfilling through the [place] to the ICA and external carotid artery 2. Occluded left internal carotid artery 3. Two evolving infarcts in the left frontal lobe 4. Expressive aphasia with development of complete expressive aphasia 5. Current smoker, 1 pack per day since age 20 Plan: 1. Continue aspirin, Brilinta, and atorvastatin 2. Continue with PT, OT, speech therapy 3. At this time there is no recommendation/indication for vascular surgical intervention. There is possibility of doing a bypass on the right carotid, however not recommended at this time. Patient can follow-up as an outpatient with vascular surgery 4. Consider evaluation from interventional neurologist 5. Continue with recommendations from neurology Thank you for this consultation, we will continue to follow. The impression and plan of care has been dictated as directed. I performed a history and examination of this patient, discussed the same with the dictator. I agree with the dictator's note ,documented as a scribe. Any additional findings or plans will be noted.
--- NOTE | 2021-09-26 13:56 | P.PCN ---
Description of Procedure: 65-year-old white female, patient has a expressive aphasia motor function are normal patient has a bilateral carotid artery occlusive disease at this point patient is not a candidate for vascular intervention patient is on antiplatelet therapy patient seen by speech therapy
--- NOTE | 2021-09-26 16:11 | P.PN ---
Subjective Progress Note Date: 09/26/21 story of Physical illness 65 years old female who does not take any regular home medications, has history of smoking more than 1 pack a day for last 40 years, was never diagnosed with COPD or any bleeding issues in the past, apparently was at home with , she was noted to have some word finding difficulty which was significant when the symptoms started this morning and then later on her symptoms are getting better but she still has some word finding difficulty no neurologically significant symptoms otherwise, patient came to ER for evaluation, patient had CT head CT angiography head and neck done in emergency department, CT head showed no acute intracranial process. CT angiogram head and neck showed bilateral carotid artery occlusion, by the time I evaluated the patient in emergency department she was not having any major speaking difficulty but she was still having some word finding difficulties. Patient continues to smoke 1-1-1/2 pack a day cigarettes for more than 40 years, she also smokes marijuana doesn't drink lives with family, she is being admitted to the hospital medicine service for further workup and neurological evaluation Interval history: Patient was examined at the bedside. She is still aphasic and still have residual right-sided weakness. Patient has strong orthostatic hypotension. She denies any chest pain or shortness of breath Physical examination General: non toxic, no acute distress, alert oriented to time place and person Head: atraumatic, normocephalic, symmetric Eyes: no lid lesion], anicteric sclera Mouth: no lip lesion, mucus membranes moist Cardiovascular: S1S2 reg rate and rhythm, no murmur, no gallop Lungs: Bilateral equal air entry, no wheezing no rhonchi no crackles. Abdominal: soft, nontender to palpation, no guarding, no appreciable organomegaly Ext: no gross muscle atrophy, no edema extremities warm to suppose a positive Neuro: Alert oriented to time place and person, exam grossly nonfocal Psych: Mood and affect appropriate, patient not so certain Skin exam: No rashes no jaundice. Assessment and plan Acute ischemic CVA Bilateral carotid artery disease Acute ischemic stroke, left hemispheric region with expressive aphasia. -Patient's NIH stroke scale was reported as 2 in the ER. Patient's stroke apparently has progressed overnight, with development of complete expressive aphasia. -2-D echo unremarkable -Resume aspirin and purulent and high-dose statins -Patient is not a candidate for surgical intervention for bilateral carotid artery stenosis Bilateral Carotid artery disease Occluded right common carotid artery extending from its origin to the bifurcation likely backfilling through the [place] to the ICA and external carotid artery -Occluded left internal carotid artery -Two evolving infarcts in the left frontal lobe -Patient was not a candidate for surgical intervention for vascular surgery -Resume aspirin Brilinta and statins Orthostatic hypotension -Start patient on midodrine 5 mg twice daily -ALESHA perez -Consulted cardiology Tobacco abuse Appropriate counseling done, encourage patient to quit smoking Marijuana use Patient smokes half joint a day per daughter at bedside, encouraged to quit smoking CODE STATUS: Full code DVT prophylaxis: Subcutaneous heparin Discharge plan: Pending clinical improvement and workup, will need neurology service before discharge Objective - Vital Signs Vital signs: Vital Signs Temp 98.3 F 09/26/21 08:49 Pulse 76 09/26/21 12:00 Resp 16 09/26/21 08:49 BP 128/58 09/26/21 12:00 Pulse Ox 96 09/26/21 08:49 FiO2 Intake & Output 09/25/21 09/26/21 09/26/21 18:59 06:59 18:59 Other: # Voids 1 1 - Labs CBC & Chem 7: 09/26/21 07:14 09/26/21 07:14 Labs: Abnormal Lab Results - Last 24 Hours (Table) 09/26/21 Range/Units 07:14 Sodium 136 L (137-145) mmol/L
[2021-09-26] MEDS: MIDODRINE 5 MG TAB PO SCH (16:56)
[2021-09-27 08:04] LABS: Basophils # (A) 0.1 k/uL (0-0.2); Basophils % (A) 1 %; Eosinophils # (A) 0.1 k/uL (0-0.7); Eosinophils % (A) 1 %; HCT 46.2 % (34.0-46.0); HGB 15.4 gm/dL (11.4-16.0); Lymphocytes # (A) 1.6 k/uL (1.0-4.8); Lymphocytes % (A) 18 %; MCH 29.8 pg (25.0-35.0); MCHC 33.4 g/dL (31.0-37.0); MCV 89.1 fL (80.0-100.0); Mean Platelet Volume 6.9; Monocytes # (A) 0.4 k/uL (0-1.0); Monocytes % (A) 5 %; Neutrophils # (A) 6.8 k/uL (1.3-7.7); Neutrophils % (A) 74 %; Platelet Count 279 k/uL (150-450); RBC 5.18 m/uL (3.80-5.40); WBC 9.2 k/uL (3.8-10.6)
[2021-09-27] MEDS: ATORVASTATIN 80 MG TAB PO SCH (08:04)
[2021-09-27] MEDS: ASPIRIN 81 MG PO SCH (08:04)
[2021-09-27] MEDS: TICAGRELOR 90 MG TAB PO SCH ×2 (08:05→20:47)
[2021-09-27] MEDS: HEPARIN SODIUM,PORCINE/PF 5,000 UNIT/0.5 ML SYRINGE SQ SCH ×2 (08:05→16:31)
[2021-09-27] MEDS: MIDODRINE 5 MG TAB PO SCH ×3 (08:05→16:32)
[2021-09-27 08:10] LABS: Calcium 9.1 mg/dL (8.4-10.2); Potassium 4.3 mmol/L (3.5-5.1)
--- NOTE | 2021-09-27 09:54 | P.PN ---
Subjective Progress Note Date: 09/26/21 Patient was seen for a follow-up. Patient's daughter was present today. Patient appears slightly more aphasic, difficulty expressing and somewhat comprehension. Patient's daughter states that patient was somewhat looking at the right hand, as if it feels different to her. Telemetry monitoring showing sinus rhythm, sinus bradycardia in the 50s to 100 intense. Some PVCs, PACs. Patient gets PSVT when walking. Objective - Vital Signs Vital signs: Vital Signs Temp 98.3 F 09/26/21 08:49 Pulse 76 09/26/21 12:00 Resp 16 09/26/21 08:49 BP 128/58 09/26/21 12:00 Pulse Ox 96 09/26/21 08:49 FiO2 Intake & Output 09/25/21 09/26/21 09/26/21 18:59 06:59 18:59 Other: # Voids 1 1 - Exam Patient is a late middle aged female, appears age-appropriate, in no distress. Patient is alert awake. Patient has severe expressive aphasia, mute not able to speak any words, not able to tell me her name, name any object or repeat. Could not say a loud alphabets. Her comprehension appears slightly affected today. She has difficulty pointing as clearly to the window and the door door, somewhat moves her hand towards the door or the window but not clearly pointing. Could not do thumbs up. Attention, concentration and fund of knowledge is limited to assess because of aphasia. On cranial examination, pupils are equal, round and reacting to light, visual moon are full on confrontation, with no obvious neglect. Her extraocular muscles are intact with no nystagmus. Patient has mild to moderate right facial weakness, drooling from the right side. She was not able to protrude her tongue due to apraxia. . Palatal elevation and sensation normal, hearing difficulty assess and shoulder shrug normal, facial sensation normal. On muscle strength testing, there is mild right pronator drift, and drifts around 20. Her strength is normal in arms and legs distally and proximally, except deltoid which is 5-/5. Deep tendon reflexes are (right/left) since 2+/2, brachioradialis 2+/2, knees 2+/2+, ankles 2/2 and plantar appears upgoing bilaterally. Sensory to touch could not be assessed reliably because of patient's aphasia, and some comprehension issues. Cerebellar function showed no ataxia for [id number] testing. Tone and bulk of muscles normal. Gait patient walking fairly steadily. On general examination, there is no carotid bruit or murmur, S1-S2 audible. Abdomen is soft nontender. No organomegaly, bowel sounds present. Chest is clear. Peripheral pulses are present. No edema. - Labs CBC & Chem 7: 09/27/21 07:14 09/27/21 07:14 Labs: Abnormal Lab Results - Last 24 Hours (Table) 09/26/21 Range/Units 07:14 Sodium 136 L (137-145) mmol/L Assessment and Plan Assessment: * Acute ischemic stroke, left hemispheric region with expressive aphasia. Patient's NIH stroke scale was reported as 2 in the ER. Patient's stroke apparently has progressed overnight, with development of complete expressive aphasia. * Bilateral ICA occlusion. Her NIH stroke scale is 9, mainly due to severe expressive aphasia. * Hyperlipidemia * Long-term Tobacco use * Marijuana use. Plan: * Patient has been started on aspirin regimen and Brilinta. She was not taking any antiplatelet medication at home. * Patient's neurological examination seems to have worsened. Her NIH stroke scale is 9. I contacted Dr. Amaral, who was the initial neuro intervention evaluated the patient in the ER. He is off today, recommended be to speak to Dr. Contreras. I contacted him and he was busy at this time, not able to take my phone, and will return call later. * Vascular surgery on board for bilateral ICA stenosis. Patient not a candidate for vascular intervention, as per 2 different vascular surgeons report. * Telemetry monitoring showing sinus rhythm, sinus bradycardia between 50s to 1 00s. PVCs, PAC and PSVT with walking.. * 2-D echo revealed normal left ventricular size and systolic function. Trace mitral and tricuspid regurgitation. EF is 55-60%. Left atrium size is normal. Bubble study not performed. * Lipid panel with cholesterol 254, LDL 159, HDL 64 triglycerides 153. We will increase Lipitor to 80 mg daily * Vitamin B12 727, TSH normal 4.34. * Hemoglobin A1c 5.4 * Permissive hypertension. Patient not on any blood pressure medication. Her blood pressure drops significantly on standing up. Patient started on midodrine. * MRI of the brain without contrast reported as two evolving infarcts in the left frontal lobe, one in the anterior watershed region, second more an teriorly along the anterior interhemispheric fissure. On my review, it appears there is involvement of the anterior branches of the left MCA, and also involving the left frontal region in the [place] distribution. * DVT prophylaxis: Heparin subcu 5000 units every 8 hours. * Complete tobacco cessation. * PT OT, speech therapy, stroke rehab.
--- NOTE | 2021-09-27 11:15 | P.PN ---
Subjective Progress Note Date: 09/27/21 Principal diagnosis: Carotid stenosis Patient is seen and examined as a follow-up for carotid stenosis. Findings are consistent with occlusion on the left ICA and right common carotid artery. At this time there is no plan on any intervention from vascular surgery. Continue medical management. Patient's is at the bedside. No changes overnight. Patient is still nonverbal. Speech therapy has seen patient and has recommended a chopped dysphasia diet. Objective - Vital Signs Vital signs: Vital Signs Temp 98.5 F 09/27/21 08:10 Pulse 85 09/27/21 08:10 Resp 17 09/27/21 08:10 BP 102/64 09/27/21 08:10 Pulse Ox 94 L 09/27/21 08:10 FiO2 Intake & Output 09/26/21 09/27/21 09/27/21 18:59 06:59 18:59 Intake Total 50 Balance 50 Intake: Oral 50 Other: # Voids 2 1 - Exam General appearance: The patient is alert, nonverbal, appears in no acute distress. HET: Head is normocephalic and atraumatic. Pupils are equal and reactive. Neck: Supple without lymphadenopathy. Trachea midline. No audible carotid bruit. Heart: S1 S2. Regular rate and rhythm. Lungs: Clear to auscultation bilaterally. Abdomen: Soft, nontender, nondistended. Extremities: Normal skin color and turgor. No cyanosis, rash, ulceration, clubbing, or edema. Radial and pedal pulses are 2/4 bilaterally. Neurological: The patient is non-verbal. Able to follow simple commands. Unable to protrude tongue, was able to give a slight smile, facial expressions seemed symmetrical. She has good tone and strength of bilateral upper and lower extremities. - Labs CBC & Chem 7: 09/27/21 07:14 09/27/21 07:14 Labs: Abnormal Lab Results - Last 24 Hours (Table) 09/27/21 09/27/21 Range/Units 07: 07:14 Hct 46.2 H (34.0-46.0) % Sodium 135 L (137-145) mmol/L Carbon Dioxide 19 L (22-30) mmol/L Assessment and Plan Assessment: 1. Occluded right common carotid artery extending from its origin to the bifurcation likely backfilling through the [place] to the ICA and external carotid artery 2. Occluded left internal carotid artery 3. Two evolving infarcts in the left frontal lobe 4. Expressive aphasia with development of complete expressive aphasia 5. Current smoker, 1 pack per day since age 20 Plan: 1. Continue aspirin, Brilinta, and atorvastatin 2. Continue with PT, OT, speech therapy 3. At this time there is no recommendation/indication for vascular surgical intervention. There is possibility of doing a bypass on the right carotid, however not recommended at this time. Patient can follow-up as an outpatient with vascular surgery 4. Consider evaluation from interventional neurologist 5. Continue with recommendations from neurology Thank you for this consultation, we will sign off at this time. It was discussed with patient and to follow up outpatient in the next 1-2 weeks. The impression and plan of care has been dictated as directed. Dr. Almonte I performed a history and examination of this patient, discussed the same with the dictator. I agree with the dictator's note ,documented as a scribe. Any additional findings or plans will be noted.
--- NOTE | 2021-09-27 11:54 | CT ---
EXAMINATION TYPE: CT brain wo con DATE OF EXAM: 09/27/2021 COMPARISON: 09/25/2021 HISTORY: CVA F/U CT DLP: 1114.4 mGycm Automated exposure control for dose reduction was used. FINDINGS: There is an area of low attenuation seen within the left parietal lobe distribution in the left MCA c ompatible with acute to subacute ischemia. No midline shift or mass effect. Additional areas of low a ttenuation in the superior parietal white matter also suspicious for recent ischemia. Small focal are a of low-attenuation involving the left basal ganglia also suspicious for recent ischemia IMPRESSION: FINDINGS COMPATIBLE WITH ACUTE ISCHEMIA LEFT MCA DISTRIBUTION. REPORT CALLED TO THE PATIENT'S NURSE. 11:48 AM 09/27/2021.
--- NOTE | 2021-09-27 12:50 | P.PN ---
Subjective story of Physical illness 65 years old female who does not take any regular home medications, has history of smoking more than 1 pack a day for last 40 years, was never diagnosed with COPD or any bleeding issues in the past, apparently was at home with , she was noted to have some word finding difficulty which was significant when the symptoms started this morning and then later on her symptoms are getting better but she still has some word finding difficulty no neurologically significant symptoms otherwise, patient came to ER for evaluation, patient had CT head CT angiography head and neck done in emergency department, CT head showed no acute intracranial process. CT angiogram head and neck showed bilateral carotid artery occlusion, by the time I evaluated the patient in emergency department she was not having any major speaking difficulty but she was still having some word finding difficulties. Patient continues to smoke 1-1-1/2 pack a day cigarettes for more than 40 years, she also smokes marijuana doesn't drink lives with family, she is being admitted to the hospital medicine service for further workup and neurological evaluation Interval history: Patient was examined at the bedside. She is still aphasic and still have residual right-sided weakness. Patient had slight neurological changes today nurse and spoke to Dr. Laureano from neurology and stat head computed tomography scan of the head ordered and showed acute left MCA distribution ischemia. Patient has strong orthostatic hypotension on September 26 started on midodrine and ALESHA hose ordered. Speech recommended be followed evaluation She denies any chest pain or shortness of breath Physical examination General: non toxic, no acute distress, alert oriented to time place and person Head: atraumatic, normocephalic, symmetric Eyes: no lid lesion], anicteric sclera Mouth: no lip lesion, mucus membranes moist Cardiovascular: S1S2 reg rate and rhythm, no murmur, no gallop Lungs: Bilateral equal air entry, no wheezing no rhonchi no crackles. Abdominal: soft, nontender to palpation, no guarding, no appreciable organomegaly Ext: no gross muscle atrophy, no edema extremities warm to suppose a positive Neuro: Expressive aphasia with right-sided hemiparesis 4/5. Right facial droop Psych: Mood and affect appropriate, patient not so certain Skin exam: No rashes no jaundice. Assessment and plan Acute ischemic CVA , right-sided hemiparesis with expressive aphasia, and right facial droop Bilateral carotid artery disease Acute ischemic stroke, left hemispheric region with expressive aphasia. -Patient's NIH stroke scale was reported as 2 in the ER. Patient's stroke apparently has progressed overnight, with development of complete expressive aphasia. -2-D echo unremarkable -Resume aspirin and Brilinta and high-dose statins -Patient is not a candidate for vascular surgical intervention for bilateral carotid artery stenosis -The case also was presented to the neuro intervention team at [facility] and no further intervention was recommended -SHED BOSS recommended to follow evaluation today Bilateral Carotid artery disease Occluded right common carotid artery extending from its origin to the bifurcation likely backfilling through the [place] to the ICA and external carotid artery -Occluded left internal carotid artery -Two evolving infarcts in the left frontal lobe -Patient was not a candidate for surgical intervention for vascular surgery -Resume aspirin Brilinta and statins Orthostatic hypotension -Started patient on midodrine 5 mg twice daily 09/26 -ALESHA perez -Consulted cardiology Tobacco abuse Appropriate counseling done, encourage patient to quit smoking Marijuana use Patient smokes half joint a day per daughter at bedside, encouraged to quit smoking CODE STATUS: Full code DVT prophylaxis: Subcutaneous heparin Discharge plan: Pending clinical improvement and workup, will need neurology service before discharge Objective - Vital Signs Vital signs: Vital Signs Temp 98.7 F 09/27/21 11:30 Pulse 74 09/27/21 11:30 Resp 16 09/27/21 11:30 BP 107/69 09/27/21 11:30 Pulse Ox 95 09/27/21 11:30 FiO2 Intake & Output 09/26/21 09/27/21 09/27/21 18:59 06:59 18:59 Intake Total 50 118 Balance 50 118 Intake: Oral 50 118 Other: # Voids 2 1 - Labs CBC & Chem 7: 09/27/21 07:14 09/27/21 07:14 Labs: Abnormal Lab Results - Last 24 Hours (Table) 09/27/21 09/27/21 Range/Units 07:14 07:14 Hct 46.2 H (34.0-46.0) % Sodium 135 L (137-145) mmol/L Carbon Dioxide 19 L (22-30) mmol/L
[2021-09-27] MEDS: FLUDROCORTISONE 0.1 MG TAB PO SCH (13:47)
--- NOTE | 2021-09-27 14:17 | FL ---
Modified barium swallow. HISTORY: Dysphagia. Modified barium swallow was performed with the department of speech pathology. The patient was prese nted with various consistencies of barium. Deep penetration pooling of ingested material within the vallecula. There was one episode of aspirati on noted. Full report is to follow from the department of speech pathology. Impression: As above
[2021-09-27] MEDS ORDERED: levETIRAcetam IV 1,000 MG in SALINE 1 100ML.BAG IVPB STA (15:04)
--- NOTE | 2021-09-27 15:06 | P.PN ---
Subjective Progress Note Date: 09/27/21 Patient was seen for a follow-up. Patient's was present today. Patient continues to be significantly aphasic. No word output at all. Cannot vocalize any sound. Telemetry monitoring in the last 24 hours showing sinus rhythm, with heart rate around 63. Objective - Vital Signs Vital signs: Vital Signs Temp 98.7 F 09/27/21 11:30 Pulse 74 09/27/21 11:30 Resp 16 09/27/21 11:30 BP 107/69 09/27/21 11:30 Pulse Ox 95 09/27/21 11:30 FiO2 Intake & Output 09/26/21 09/27/21 09/27/21 18:59 06:59 18:59 Intake Total 50 118 Balance 50 118 Intake: Oral 50 118 Other: # Voids 2 1 - Exam Patient is a late middle aged female, appears age-appropriate, in no distress. Patient is alert awake. Patient has severe expressive aphasia, mute not able to speak any words, not able to tell me her name, name any object or repeat. Could not say a loud alphabets or numbers. Her comprehension appears better today as compared to yesterday. Patient was clearly able to point to the window, to the door, sealing and gave thumbs up. Attention, concentration and fund of knowledge is limited to assess because of aphasia. On cranial examination, pupils are equal, round and reacting to light, visual moon are full on confrontation, with no obvious neglect. Her extraocular muscles are intact with no nystagmus. Patient has mild to moderate right facial weakness, drooling from the right side. She was not able to protrude her tongue due to apraxia. . Palatal elevation and sensation normal, hearing difficulty assess and shoulder shrug normal, facial sensation normal. On muscle strength testing, there is mild right pronator drift, and drifts around 20, no changes compared to yesterday. Her strength is normal in arms and legs distally and proximally, except deltoid which is 5-/5. Deep tendon reflexes are (right/left) since 2+/2, brachioradialis 2+/2, knees 2+/2+, ankles 2/2 and plantar appears upgoing bilaterally. Sensory to touch could not be assessed reliably because of patient's aphasia, and some comprehension issues. Cerebellar function showed no ataxia for [id number] testing. Tone and bulk of muscles normal. Gait deferred.. On general examination, there is no carotid bruit or murmur, S1-S2 audible. Abdomen is soft nontender. No organomegaly, bowel sounds present. Chest is clear. Peripheral pulses are present. No edema. - Labs CBC & Chem 7: 09/27/21 07:14 09/27/21 07:14 Labs: Abnormal Lab Results - Last 24 Hours (Table) 09/27/21 09/27/21 Range/Units 07:14 07:14 Hct 46.2 H (34.0-46.0) % Sodium 135 L (137-145) mmol/L Carbon Dioxide 19 L (22-30) mmol/L Assessment and Plan Assessment: * Acute ischemic stroke, left hemispheric region with expressive aphasia. Patient's NIH stroke scale was reported as 2 in the ER. Patient's stroke apparently has progressed overnight, with development of complete expressive aphasia. Her current NIH stroke scale is 9, mainly due to expressive aphasia. * Bilateral ICA occlusion. * Hyperlipidemia * Long-term Tobacco use * Marijuana use. Plan: * Patient has been started on aspirin regimen and Brilinta. She was not taking any antiplatelet medication at home. * Patient's neurological examination seems to have stabilized, improved as compared to yesterday. She is almost back to how she was seen on day 1. Her NIH stroke scale is 9. I spoke to Dr. Contreras, who did not recommend any intervention due to bilateral complete occlusion. * Repeat CT head performed today, showed no hemorrhage. No new stroke, just evolving previous CVA. * Vascular surgery on board for bilateral ICA stenosis. Patient not a candidate for vascular intervention, as per 2 different vascular surgeons report. * Patient underwent EEG today, to rule out any seizure activity. It revealed continuous dysrhythmic focal theta and delta activity seen in the left hemispheric region, maximal left frontal temporal. Intermittent burst of rhythmic delta and theta was also seen in the same distribution with some sharply controlled waves. This may suggest underlying cortical irritability. We will empirically start Keppra 1000 g loading dose IV, followed by Keppra 500 mg twice a day. We will follow clinically. * Telemetry monitoring showing sinus rhythm with heart rate around 63. * 2-D echo revealed normal left ventricular size and systolic function. Trace mitral and tricuspid regurgitation. EF is 55-60%. Left atrium size is normal. Bubble study not performed. * Lipid panel with cholesterol 254, LDL 159, HDL 64 triglycerides 153. We will increase Lipitor to 80 mg daily * Vitamin B12 727, TSH normal 4.34. * Hemoglobin A1c 5.4 * Permissive hypertension. Patient not on any blood pressure medication. Her blood pressure drops significantly on standing up. Patient started on midodrine 10 mg twice a day. We will change midodrine to 5 mg 3 times a day. Also start Florinef 0.05 mg daily for short while. * MRI of the brain without contrast reported as two evolving infarcts in the left frontal lobe, one in the anterior watershed region, second more anteriorly along the anterior interhemispheric fissure. On my review, it appears there is involvement of the anterior branches of the left MCA, and also involving the left frontal region in the KAVON distribution. * DVT prophylaxis: Heparin subcu 5000 units every 8 hours. * Complete tobacco cessation. * PT OT, speech therapy, stroke rehab. * Discussed with primary team in detail.
--- NOTE | 2021-09-27 19:21 | EEG ---
ELECTROENCEPHALOGRAM REPORT DATE OF SERVICE: 09/27/2021 PREAMBLE: This is a 65-year-old female with acute stroke, with severe aphasia. This study is performed to evaluate for any epileptiform activity. EEG FINDINGS: This is a 21 channel digital EEG recorded with video competent, utilizing 10/20 international system with referential and bipolar montages. The background consists of well regulated and modulated, 9-10 hertz alpha seen mainly in the right hemispheric region. There is continuous focal dysrhythmic theta and delta activity seen in the left hemispheric region. Intermittent rhythmic theta or rhythmic delta was also seen on the left frontotemporal region. Some sharp appearing waves were also seen in the in the left temporal region. No electrographic seizure was recorded. The background seems to be reactive to eye opening and closing. Some drowsiness was seen with appearance of theta frequency rhythm noticeable in the normal right hemispheric region. Deeper stages of sleep were not seen. Photic driving response was seen with some flash frequencies. IMPRESSION: This is an abnormal EEG due to: 1. The presence of constant focal slowing in dysrhythmic theta and delta range in the left hemispheric region, maximal left frontotemporal. This is suggestive of focal cortical neuro dysfunction and suggests underlying structural abnormality. 2. Intermittent rhythmic delta and theta activity seen with occasional sharp waves in the left temporal region, which may suggest underlying cortical irritability. Clinical correlation is recommended. MMODL / IJN: [id number] /
[2021-09-27] MEDS: levETIRAcetam 500 MG TAB PO SCH (20:47)
--- NOTE | 2021-09-27 21:21 | CONS ---
CONSULTATION Mehran Aguirre is a lady who is 65 years of age without past medical history of significance, was brought to the emergency room on September 24. Her visit to the emergency room was because of a syncopal episode and she had difficulty forming words. She has what seems to be an acute stroke. CT angiogram revealed bilateral carotid occlusion and she also has history of smoking and marijuana use. I was asked to see her mainly because of hypotension, and patient was started on midodrine, but the neurologist today discontinued the midodrine and felt her pressure was acceptable. Echocardiogram revealed preserved systolic function. It appears that we are dealing with a global cerebral ischemia, but cardiac-jennings patient is stable at this time. Blood pressure is about 108 systolic. Patient is noncommunicative today and it appears that we are dealing with a global cerebral ischemia. Patient is having what seems to be on the basis of an MRI frontal lobe infarction. I will come back and see the patient as needed, but at this time I have no new specific suggestions. Echocardiogram performed on September 25 revealed preserved systolic function and the bubble study was a difficult one. I discussed my thoughts in detail with the patient's and explained to him that I will come back and see the patient as needed. Blood pressure control is optimal at this time. MMODL / IJN: [id number] /
[2021-09-28] MEDS: HEPARIN SODIUM,PORCINE/PF 5,000 UNIT/0.5 ML SYRINGE SQ SCH ×4 (00:11→23:56)
[2021-09-28] MEDS: MIDODRINE 5 MG TAB PO SCH ×3 (06:39→17:05)
[2021-09-28] MEDS: ATORVASTATIN 80 MG TAB PO SCH (09:00)
[2021-09-28] MEDS: levETIRAcetam 500 MG TAB PO SCH ×2 (09:01→20:43)
[2021-09-28] MEDS: FLUDROCORTISONE 0.1 MG TAB PO SCH (09:01)
[2021-09-28] MEDS: ASPIRIN 81 MG PO SCH (09:03)
[2021-09-28] MEDS: TICAGRELOR 90 MG TAB PO SCH ×2 (09:03→20:43)
[2021-09-28 13:10] VITALS: BMI 20.9
--- NOTE | 2021-09-28 14:39 | P.PN ---
Subjective Progress Note Date: 09/28/21 64-year-old female admitted 4 days ago with aphasia secondary to an acute left MCA stroke. There've been no significant events overnight. Patient remains completely aphasic she is awake, alert, and responds to commands but is nonverbal. She is able to ambulate with minimal difficulty, she's participating in her ADLs independently. She was found to have orthostatic hypotension 2 days ago and was started on Midodrin, blood pressure has been stable today. She had an EEG yesterday which showed continuous dysrhythmic activity in the left hemispheric region. She was started on the Keppra loading dose followed by 500 mg twice a day maintenance. Patient's notes that she has been more lethargic today since the Keppra was started. There have been no seizures since admission Objective - Vital Signs Vital signs: Vital Signs Temp 98 F 09/28/21 11:24 Pulse 72 09/28/21 11:24 Resp 20 09/28/21 11:24 BP 123/79 09/28/21 11:24 Pulse Ox 95 09/28/21 11:24 FiO2 Intake & Output 09/27/21 09/28/21 09/28/21 18:59 06:59 18:59 Intake Total 298 Balance 298 Weight 59 kg Intake: Oral 298 Other: # Voids 1 1 - Exam General: non toxic, no acute distress,non verbal Head: atraumatic, normocephalic Eyes: Pupils equal round reactive to light, extraocular muscles intact anicteric sclera Mouth: no lip lesion, mucus membranes moist Cardiovascular: S1S2 reg rate and rhythm, no murmur, no gallop Lungs: Bilateral equal air entry, no wheezing no rhonchi no crackles. Abdominal: soft, nontender to palpation, no guarding, no appreciable organomegaly Ext: no gross muscle atrophy, no edema Neuro: Expressive aphasia with right-sided hemiparesis 4/5. Right facial droop remaining cranial nerves are intact. She is nonverbal, but she does cooperate with exam and responds to simple commands Psych: Mood and affect appropriate Skin exam: No rashes no jaundice. - Labs CBC & Chem 7: 09/27/21 07:14 09/27/21 07:14 Assessment and Plan Plan: Acute ischemic CVA -right-sided hemiparesis with expressive aphasia, and right facial droop -2-D echo unremarkable -Resume aspirin and Brilinta and high-dose statins -Patient is not a candidate for vascular surgical intervention for bilateral carotid artery stenosis -The case also was presented to the neuro intervention team at [facility] and no further intervention was recommended -Continue speech, physical, and occupational therapy -EEG done yesterday shows continuous dysrhythmic focal activity in the left hemispheric region. Started on loading dose of Keppra followed by 500 mg twice a day Bilateral Carotid artery disease Occluded right common carotid artery extending from its origin to the bifurcation likely back filling through the [place] of [place] to the ICA and external carotid artery -Occluded left internal carotid artery -Two evolving infarcts in the left frontal lobe -Patient was not a candidate for surgical intervention per vascular surgery -Resume aspirin Brilinta and statins Orthostatic hypotension -Started patient on midodrine 5 mg twice daily 09/26 -Blood pressure has been stable today Anticipated discharge home tomorrow Time with Patient: Greater than 30
[2021-09-29] MEDS: MIDODRINE 5 MG TAB PO SCH ×3 (06:17→16:27)
[2021-09-29 07:24] LABS: Basophils % (A) 0 %; Eosinophils # (A) 0.2 k/uL (0-0.7); Eosinophils % (A) 4 %; HCT 46.7 % (34.0-46.0); HGB 15.1 gm/dL (11.4-16.0); Lymphocytes # (A) 1.4 k/uL (1.0-4.8); Lymphocytes % (A) 25 %; MCH 28.9 pg (25.0-35.0); MCHC 32.3 g/dL (31.0-37.0); MCV 89.3 fL (80.0-100.0); Monocytes # (A) 0.3 k/uL (0-1.0); Monocytes % (A) 6 %; Neutrophils # (A) 3.6 k/uL (1.3-7.7); Neutrophils % (A) 63 %; Platelet Count 315 k/uL (150-450); RBC 5.23 m/uL (3.80-5.40); RDW 12.7 % (11.5-15.5); WBC 5.8 k/uL (3.8-10.6)
[2021-09-29 07:46] LABS: Albumin 4.1 g/dL (3.5-5.0); Calcium 9.2 mg/dL (8.4-10.2); Total Bilirubin 0.8 mg/dL (0.2-1.3); Total Protein 6.8 g/dL (6.3-8.2)
[2021-09-29] MEDS: ASPIRIN 81 MG PO SCH (09:51)
[2021-09-29] MEDS: ATORVASTATIN 80 MG TAB PO SCH (09:51)
[2021-09-29] MEDS: TICAGRELOR 90 MG TAB PO SCH (09:51)
[2021-09-29] MEDS: levETIRAcetam 500 MG TAB PO SCH (09:51)
[2021-09-29] MEDS: HEPARIN SODIUM,PORCINE/PF 5,000 UNIT/0.5 ML SYRINGE SQ SCH ×2 (09:51→16:27)
[2021-09-29] MEDS: FLUDROCORTISONE 0.1 MG TAB PO SCH (09:52)
[2021-09-29 10:16] VITALS: RESP 16
--- NOTE | 2021-09-29 11:13 | P.PN ---
Subjective Progress Note Date: 09/28/21 Patient was seen for a follow-up. Patient's daughter and nephew were present today. Patient continues to be significantly aphasic. No word output at all. Cannot vocalize any sound. However her comprehension is improved. Objective - Vital Signs Vital signs: Vital Signs Temp 98 F 09/28/21 11:24 Pulse 72 09/28/21 11:24 Resp 20 09/28/21 11:24 BP 123/79 09/28/21 11:24 Pulse Ox 95 09/28/21 11:24 FiO2 Intake & Output 09/27/21 09/28/21 09/28/21 18:59 06:59 18:59 Intake Total 298 Balance 298 Weight 59 kg Intake: Oral 298 Other: # Voids 1 1 - Exam Patient is a late middle aged female, appears age-appropriate, in no distress. Patient is alert awake. Patient has severe expressive aphasia, mute not able to speak any words, not able to tell me her name, name any object or repeat. Could not say a loud alphabets or numbers. Her comprehension appears better today as compared to yesterday. Patient was clearly able to point to the window, to the door, ceiling and gave thumbs up. Attention, concentration and fund of knowledge is limited to assess because of aphasia. On cranial examination, pupils are equal, round and reacting to light, visual moon are full on confrontation, although questionable slightly neglects to the left perhaps related to better comprehension. Her extraocular muscles are intact with no nystagmus. Patient has mild right facial weakness, drooling from the right side. She was not able to protrude her tongue due to apraxia. . Palatal elevation and sensation normal, hearing difficulty assess and shoulder shrug normal, facial sensation normal. On muscle strength testing, there is mild right pronator drift about 10-15, no changes compared to yesterday. Her strength is normal in arms and legs distally and proximally, except deltoid which is 5-/5. Deep tendon reflexes are (right/left) since 2+/2, brachioradialis 2+/2, knees 2+/2+, ankles 2/2. Sensory to touch could not be assessed reliably because of patient's aphasia, and significant comprehension issues. Cerebellar function showed no ataxia for [id number] testing. Tone and bulk of muscles normal. Gait deferred.. On general examination, there is no carotid bruit or murmur, S1-S2 audible. Abdomen is soft nontender. No organomegaly, bowel sounds present. Chest is clear. Peripheral pulses are present. No edema. - Labs CBC & Chem 7: 09/29/21 06:58 09/29/21 06:58 Assessment and Plan Assessment: * Acute ischemic stroke, left hemispheric region with expressive aphasia. Patient's NIH stroke scale was reported as 2 in the ER. Patient's stroke apparently progressed overnight on the day of admission, with development of complete expressive aphasia. Her current NIH stroke scale is 9, mainly due to expressive aphasia. Her neurological examination now has stabilized. * Bilateral ICA occlusion. * Hyperlipidemia * Abnormal EEG. * Long-term Tobacco use * Marijuana use. Plan: * Patient has been started on aspirin regimen and Brilinta. She was not taking any antiplatelet medication at home. After 1 month, patient can be switched to aspirin and Plavix and maintain on dual antiplatelet medications. * Patient's neurological examination seems to have stabilized, improved as compared to yesterday. She is almost back to how she was seen on day 1. Her NIH stroke scale is 9. I spoke to Dr. Contreras, who did not recommend any intervention due to bilateral complete occlusion. He did recommend increasing blood pressure with midodrine 5 mg 3 times a day and Florinef. * Vascular surgery on board for bilateral ICA stenosis. Patient not a candidate for vascular intervention, as per 2 different vascular surgeons report. * Patient underwent EEG 09/27/2021 revealed continuous dysrhythmic focal theta and delta activity seen in the left hemispheric region, maximal left frontal temporal. Intermittent burst of rhythmic delta and theta was also seen in the same distribution with some sharply controlled waves. This may suggest underlying cortical irritability. We will empirically start Keppra 1000 g loading dose IV, followed by Keppra 500 mg twice a day. Continue Keppra for a couple weeks. Then may stop it. I would not recommend keeping Her long-term. May need repeat EEG as an outpatient. * 2-D echo revealed normal left ventricular size and systolic function. Trace mitral and tricuspid regurgitation. EF is 55-60%. Left atrium size is normal. Bubble study not performed. * Lipid panel with cholesterol 254, LDL 159, HDL 64 triglycerides 153. We will increase Lipitor to 80 mg daily * Vitamin B12 727, TSH normal 4.34. * Hemoglobin A1c 5.4 * MRI of the brain without contrast reported as two evolving infarcts in the l eft frontal lobe, one in the anterior watershed region, second more anteriorly along the anterior interhemispheric fissure. On my review, it appears there is involvement of the anterior branches of the left MCA, and also involving the left frontal region in the KAVON distribution. * DVT prophylaxis: Heparin subcu 5000 units every 8 hours. * Complete tobacco cessation. * PT OT, speech therapy, stroke rehab. * Possible discharge home in the morning with outpatient speech therapy.
[2021-09-29 14:11] VITALS: BP 116/66; PULSE 74; TEMP 97.6
--- NOTE | 2021-09-29 16:01 | P.DS ---
Providers Date of admission: 09/24/21 15:29 Expected date of discharge: 09/29/21 Attending physician: Janine Tanner MD Consults: 09/24/21 15:26 Consult Physician Routine Consulting Provider: Jacobo Prather Consult Reason/Comments: cva, suspected chronic carotid occlusions Do you want consulting provider notified?: Already Contacted 09/24/21 19:37 Consult Physician Routine Consulting Provider: Junior Adams Consult Reason/Comments: carotid stenosi Do you want consulting provider notified?: Yes 09/26/21 14:02 Consult Physician Routine Consulting Provider: Kendall Edmond Consult Reason/Comments: orthostatic hypotension with acute CVA Do you want consulting provider notified?: Yes Primary care physician: Stated None Hospital Course: 65 years old female who does not take any regular home medications, has history of smoking more than 1 pack a day for last 40 years, was never diagnosed with COPD or any bleeding issues in the past, apparently was at home with , she was noted to have some word finding difficulty which was significant when the symptoms started this morning and then later on her symptoms are getting better but she still has some word finding difficulty no neurologically significant symptoms otherwise, patient came to ER for evaluation, patient had CT head CT angiography head and neck done in emergency department, CT head showed no acute intracranial process. CT angiogram head and neck showed bilateral carotid artery occlusion, by the time I evaluated the patient in emergency department she was not having any major speaking difficulty but she was still having some word finding difficulties. Patient continues to smoke 1-1-1/2 pack a day cigarettes for more than 40 years, she also smokes marijuana doesn't drink lives with family, she is being admitted to the hospital medicine service for further workup and neurological evaluation. Echocardiogram showed normal LV size and systolic function with trace mitral and tricuspid regurgitation. MRI brain showed 2 evolving infarcts in the left frontal lobe, one in the anterior watershed region, second more anteriorly along the anterior interhemispheric fissure. Carotid Doppler showed total occluded right common carotid artery with near occlusion of the left internal carotid artery. Vascular surgery was consulted and recommended no surgical intervention. PT, OT and speech therapy was consulted. Speech therapy recommended pureed Honey thick liquids and outpatient follow-up. Lipid panel with cholesterol 254, LDL 159, HDL 64 triglycerides 153. Hemoglobin A1c was 5.4. EEG revealed continuous dysrhythmic focal theta and delta activity seen in the left hemispheric region, maximal left frontal temporal, Intermittent burst of rhythmic delta and theta was also seen in the same distribution with some sharply controlled waves. Neurology recommeded loading the patient on Keppra. Patient was also noted to have orthostatic hypotension for which she was started on Midodrin Patient was cleared for discharge from a Neurology perspective on 09/29/2021. Patient was advised to start asprin and Lipitor indefinately. She was advised to continue Brilinta for 1 month followed by Keshia after. She was advised to follow-up with her PCP within 1-2 days of discharge. Follow-up with neurology within 1 week of discharge. Follow-up with vascular surgery within 2 weeks of discharge. The plan was expressed to the and he verbalized understanding. General: [non toxic], [no distress], [appears at stated age] Derm: [warm], [dry] Head: [atraumatic], [normocephalic], [symmetric] Eyes: [EOMI], [no lid lag], [anicteric sclera] Mouth: [no lip lesion], [mucus membranes moist] Cardiovascular: [S1S2 reg], [no murmur] Lungs: [CTA bilateral], [no rhonchi, no rales] , [no accessory muscle use] Ext: [no gross muscle atrophy], [no edema], [no contractures] Neuro: [ 4/5 weakness in the RU and RLE. Expressive aphasia.] Psych: [Alert], [oriented], [appropriate affect] Discharge diagnosis: Acute ischemic stroke Bilateral carotid stenosis Orthostatic hypotension Abnormal EKG Dyslipidemia Tobacco abuse Marijuana use This complex discharge took about 45 minutes to complete. Pertinent Studies: Brain CT, CTA head and neck, echocardiogram, brain MRI, EEG Patient Condition at Discharge: Stable Plan - Discharge Summary Discharge Rx Participant: Yes New Discharge Prescriptions: New Aspirin 81 mg PO DAILY #30 tab Ticagrelor [Brilinta] 90 mg PO BID #60 tab Atorvastatin [Lipitor] 80 mg PO DAILY #30 tab Fludrocortisone [Florinef] 0.05 mg PO DAILY #30 tab Clopidogrel [Plavix] 75 mg PO DAILY #30 tablet Midodrine [ProAmatine] 5 mg PO AC-TID #90 tab levETIRAcetam [Keppra] 500 mg PO Q12HR #60 tab Discharge Medication List Aspirin 81 mg PO DAILY #30 tab 09/26/21 [Rx] Atorvastatin [Lipitor] 80 mg PO DAILY #30 tab 09/26/21 [Rx] Ticagrelor [Brilinta] 90 mg PO BID #60 tab 09/26/21 [Rx] Clopidogrel [Plavix] 75 mg PO DAILY #30 tablet 09/29/21 [Rx] Fludrocortisone [Florinef] 0.05 mg PO DAILY #30 tab 09/29/21 [Rx] Midodrine [ProAmatine] 5 mg PO AC-TID #90 tab 09/29/21 [Rx] levETIRAcetam [Keppra] 500 mg PO Q12HR #60 tab 09/29/21 [Rx] Follow up Appointment(s)/Referral(s): Jamison Wynn MD [REFERRING] - 1 Week Jose Carlos Mayo DO [STAFF PHYSICIAN] - 2 Weeks None,Stated [Primary Care Provider] - 1-[facility] - Patient Instructions/Handouts: Ischemic Stroke (DC) Activity/Diet/Wound Care/Special Instructions: Diet: Pureed; Honey Thick liquids (via spoon) Supervision with all oral intake; sitting upright (90 degrees); no straws; honey thick liquids from spoon; small bites and sips; alternate liquids/solids; medications crushed in applesauce/yogurt Contact [facility] department to set up outpatient speech therapy - [phone] Ext [phone] Take Aspirin and Lipitor indefinitely. Take Brilinta one tablet twice a day for the first 30 days. After that, start Plavix one tablet daily. Follow up with Vascular surgery within 2 weeks of discharge. Follow up with Neurology within 1 week of discharge. Do NOT drive until cleared by Neurology. Discharge Disposition: HOME SELF-CARE
== END 2021-09-29 16:27 | disposition home or self-care (01) | DRG 65 ==
LOC: EC 12:25 → 3SCARD 15:29
PROVIDERS: ADMIT Internal Medicine; ATTEND Internal Medicine
DX: I63.512 Cerebral infarction due to unspecified occlusion or stenosis of left middle cerebral artery (principal); G81.91 Hemiplegia, unspecified affecting right dominant side; E78.5 Hyperlipidemia, unspecified; F17.210 Nicotine dependence, cigarettes, uncomplicated; I45.10 Unspecified right bundle-branch block; I65.23 Occlusion and stenosis of bilateral carotid arteries; I49.3 Ventricular premature depolarization; I95.1 Orthostatic hypotension; R29.702 NIHSS score 2; R29.707 NIHSS score 7; R29.709 NIHSS score 9; R29.710 NIHSS score 10; R29.810 Facial weakness; R47.01 Aphasia; Z79.02 Long term (current) use of antithrombotics/antiplatelets; Z79.82 Long term (current) use of aspirin; Z79.899 Other long term (current) drug therapy; Z28.310 Unvaccinated for COVID-19
CPT/HCPCS: 36415; 70450; 70496; 70498; 70551; 71046; 74230; 80048; 80053; 80061; 80306; 81003; 82140; 82306; 82607; 82652; 83036; 83735; 84443; 84484; 85025; 85610; 85730; 93005; 93306; 93308; 93880; 95816; 99291

== ENCOUNTER → 2022-01-08 | Outpatient (CLI) | payer MEDICAID | END | disposition home or self-care (01) | LOC: LABWHC1 08:39 | PROVIDERS: ATTEND Psychiatry & Neurology Neurology | DX: R56.9 Unspecified convulsions (principal) | CPT/HCPCS: 36415; 80177 ==

== ENCOUNTER → 2022-07-03 | Outpatient (CLI) | payer MEDICAID | END | disposition home or self-care (01) | LOC: LABWHC1 08:26 | PROVIDERS: ATTEND Psychiatry & Neurology Neurology | DX: R56.9 Unspecified convulsions (principal) | CPT/HCPCS: 36415; 80177 ==

== ENCOUNTER → 2022-10-26 | Outpatient (CLI) | payer MEDICAID ==
[2022-10-26 15:54] LABS: Basophils # (A) 0.05 X 10*3/uL (0.00-0.10); Basophils % (A) 0.9 %; Eosinophils # (A) 0.41 X 10*3/uL (0.04-0.35); Eosinophils % (A) 7.3 %; HCT 40.9 % (37.2-46.3); HGB 13.3 d/dL (12.0-15.0); Lymphocytes # (A) 1.86 X 10*3/uL (0.90-5.00); MCH 28.3 pg (27.0-32.0); MCHC 32.5 d/dL (32.0-37.0); Mean Platelet Volume 9.8 FL (9.5-12.2); Monocytes # (A) 0.47 X 10*3/uL (0.20-1.00); Monocytes % (A) 8.3 %; NRBC Per 100 WBC 0 X 10*3/uL (0.00-0.01); Neutrophils # (A) 2.83 X 10*3/uL (1.80-7.70); Neutrophils % (A) 50.3 %; Platelet Count 296 X 10*3/uL (140-440); RDW 13.1 % (11.5-14.5); WBC 5.63 X 10*3/uL (4.50-10.00)
[2022-10-26 16:14] LABS: ALT 30 U/L (8-44); AST 24 U/L (13-35); Albumin 4.4 d/dL (3.8-4.9); Alkaline Phosphatase 140 U/L (41-126); BUN/Creat Ratio 11.44 Ratio (12.00-20.00); Blood Urea Nitrogen 10.3 mg/dL (9.0-27.0); Calcium 9.2 mg/dL (8.7-10.3); Carbon Dioxide 24.2 mmol/L (21.6-31.8); Chloride 106 mmol/L (96-109); Chol/HDL Ratio 2.48 Ratio; Globulin 2.1 d/dL (1.6-3.3); Glucose 86 mg/dL (70-110); LDL Cholesterol,Calculated 74.4 mg/dL (0.0-131.0); Potassium 4.6 mmol/L (3.5-5.5); Sodium 142 mmol/L (135-145); Total Bilirubin 0.6 mg/dL (0.3-1.2); Total Protein 6.5 d/dL (6.2-8.2)
== END | disposition home or self-care (01) ==
LOC: LABWHC1 09:21
PROVIDERS: ATTEND Family Medicine
DX: Z00.00 Encounter for general adult medical examination without abnormal findings (principal)
CPT/HCPCS: 36415; 80053; 80061; 83036; 84443; 85025; 87522

== ENCOUNTER → 2023-02-27 | Outpatient (CLI) | payer MEDICARE | END | disposition home or self-care (01) | LOC: LABWHC1 09:02 | PROVIDERS: ATTEND Psychiatry & Neurology Neurology | DX: R56.9 Unspecified convulsions (principal) | CPT/HCPCS: 36415; 80177 ==

== ENCOUNTER → 2023-04-15 | Outpatient (CLI) | payer MEDICARE ==
[2023-04-15 11:09] LABS: African American GFR (CKD) 81 (>60 ml/min/1.73 sqM); Blood Urea Nitrogen 14 mg/dL (7-17); Non-African American GFR(CKD) 70 (>60 ml/min/1.73 sqM)
--- NOTE | 2023-04-15 12:40 | CT ---
EXAMINATION TYPE: CT angio neck DATE OF EXAM: 04/15/2023 HISTORY: carotid stenosis COMPARISON: None CT DLP: 333 mGycm. Automated Exposure Control for Dose Reduction was Utilized. TECHNIQUE: CTA scan of the neck is performed with IV Contrast, patient injected with 65cc mL of Isov ue 370, axial images are obtained, coronal and sagittal reformatted images are reviewed. Three-D susie nstructed images are created on an independent workstation and reviewed. Source images are reviewed. FINDINGS: Carotid/Vascular Structures: There is a 3 vessel arch. Common carotid arteries bifurcate into internal and external carotid arteries. There is at least a 73 % area of narrowing within the proximal left internal carotid artery.. This may be greater within the mid origin of the left internal carotid artery. X line the right common carotid artery is not identi fied. Calcification is identified at the right carotid bifurcation. Internal and external vascular st ructures are identified with contrast. This could be a retrograde fill. Vertebral arteries are codominant. Internal carotid arteries and vertebral arteries are patent to the skull base. IMPRESSION: 1. Findings suggestive for complete obstruction of the right common carotid artery to the bifurcation . Retrograde fill from the right internal carotid artery may fill the right external carotid arteries . 2. Severe stenosis measuring 73% within the proximal left internal carotid artery which may be even g reater in the mid left internal carotid artery origin. NASCET criteria was used in interpretation of this exam?
== END | disposition home or self-care (01) ==
LOC: RADCTMAIN 10:27
PROVIDERS: ATTEND Surgery
DX: I65.22 Occlusion and stenosis of left carotid artery (principal)
CPT/HCPCS: 82565; 84520; 70498; 36415; Q9967

== ENCOUNTER → 2023-06-19 | Outpatient (CLI) | payer MEDICARE | END | disposition home or self-care (01) | LOC: LABWHC1 08:23 | PROVIDERS: ATTEND Psychiatry & Neurology Neurology | DX: R56.9 Unspecified convulsions (principal) | CPT/HCPCS: 36415; 80177 ==

== ENCOUNTER 2023-07-28 00:08 | Observation (INO) | payer MEDICARE ==
--- NOTE | 2023-07-28 00:44 | ED ---
General Adult HPI - General Chief complaint: Chest Pain Stated complaint: chest pain, high bp Time Seen by Provider: 07/28/23 00:22 Source: patient, RN notes reviewed, old records reviewed Mode of arrival: wheelchair Limitations: no limitations - History of Present Illness Initial comments: 67-year-old female presents for evaluation of substernal chest pain which began approximately 1 hour prior to arrival. Patient has history of CVA, no prior history of CAD or previous ND. She did not have any vomiting or diaphoresis. Pain does not radiate. Pain woke the patient from sleep. She was noted to be hypertensive at home and typically has issues with low blood pressure and is on midodrine. - Related Data Previous Rx's Medication Instructions Recorded Aspirin 81 mg PO DAILY #30 tab 09/26/21 Atorvastatin [Lipitor] 80 mg PO DAILY #30 tab 09/26/21 Ticagrelor [Brilinta] 90 mg PO BID #60 tab 09/26/21 Clopidogrel [Plavix] 75 mg PO DAILY #30 tablet 09/29/21 Fludrocortisone [Florinef] 0.05 mg PO DAILY #30 tab 09/29/21 Midodrine [ProAmatine] 5 mg PO AC-TID #90 tab 09/29/21 levETIRAcetam [Keppra] 500 mg PO Q12HR #60 tab 09/29/21 Allergies Allergy/AdvReac Type Severity Reaction Status Date / Time No Known Allergies Allergy Verified 09/24/21 13:36 Review of Systems ROS Statement: Those systems with pertinent positive or pertinent negative responses have been documented in the HPI. ROS Other: All systems not noted in ROS Statement are negative. Past Medical History Past Medical History: CVA/TIA, Hyperlipidemia History of Any Multi-Drug Resistant Organisms: None Reported Past Surgical History: No Surgical Hx Reported Past Anesthesia/Blood Transfusion Reactions: No Reported Reaction Past Psychological History: No Psychological Hx Reported Smoking Status: Current every day smoker Past Alcohol Use History: None Reported Past Drug Use History: Marijuana General Exam Limitations: no limitations General appearance: alert, in no apparent distress Head exam: Present: atraumatic, normocephalic Eye exam: Present: normal appearance, PERRL Respiratory exam: Present: normal lung sounds bilaterally. Absent: respiratory distress, wheezes Cardiovascular Exam: Present: regular rate, normal rhythm GI/Abdominal exam: Present: soft. Absent: distended, tenderness, guarding Extremities exam: Present: normal inspection, normal capillary refill Neurological exam: Present: alert, motor sensory deficit (Expressive aphasia, states this is baseline) Skin exam: Present: warm, dry, intact Course Vital Signs 07/28/23 07/28/23 07/28/23 00:11 00:38 01:10 Temperature 97.5 F L Pulse Rate 94 86 84 Respiratory 16 15 15 Rate Blood Pressure 177/110 147/70 117/63 O2 Sat by Pulse 99 97 95 Oximetry 07/28/23 02:10 Temperature Pulse Rate 85 Respiratory 17 Rate Blood Pressure 127/67 O2 Sat by Pulse 96 Oximetry Medical Decision Making - Medical Decision Making Was pt. sent in by a medical professional or institution (, PA, ETL DATA ARCHITECT, urgent care, hospital, or prison...) When possible be specific @ -No Did you speak to anyone other than the patient for history (EMS, parent, family, police, friend...)? What history was obtained from this source @ is able to add to the history. Did you review nursing and triage notes (agree or disagree)? Why? @ -I reviewed and agree with nursing and triage notes Were old charts reviewed (outside hosp., previous admission, EMS record, old EKG, old radiological studies, urgent care reports/EKG's, prison records)? Report findings @ -No old charts were reviewed Differential Chest Pain: Stable Angina, Unstable Angina, STEMI, NSTEMI Aortic Dissection, Pneumothorax, Musculoskeletal, Esophageal Spasm GERD, Cholecystitis, Pancreatitis, Zoster, this is not meant to be an all-inclusive list. EKG interpreted by me (3pts min.). @ -EKG sinus rhythm, incomplete right bundle branch block, rate of 89, AR interval 142, QRS duration 101, QTc 409. X-rays interpreted by me (1pt min.). @ -Chest x-ray negative for acute cardiopulmonary findings CT interpreted by me (1pt min.). @ -None done U/S interpreted by me (1pt. min.). @ -None done What testing was considered but not performed or refused? (CT, X-rays, U/S, labs)? Why? @ -None What meds were considered but not given or refused? Why? @ -None Did you discuss the management of the patient with other professionals (professionals i.e. , PA, ETL DATA ARCHITECT, lab, RT, psych nurse, social media editor, graphic technician, teacher, human resources officer, case fitter)? Give summary @ -No Was smoking cessation discussed for >3mins.? @ -No Was critical care preformed (if so, how long)? @ -No Were there social determinants of health that impacted care today? How? (Homelessness, low income, unemployed, alcoholism, drug addiction, transportation, low edu. Level, literacy, decrease access to med. care, mcc, rehab)? @ -No Was there de-escalation of care discussed even if they declined (Discuss DNR or withdrawal of care, Hospice)? DNR status @ -No What co-morbidities impacted this encounter? (DM, HTN, Smoking, COPD, CAD, Cancer, CVA, ARF, Chemo, Hep., AIDS, mental health diagnosis, sleep apnea, morbid obesity)? @ -CVA Was patient admitted / discharged? Hospital course, mention meds given and route, prescriptions, significant lab abnormalities, going to OR and other pertinent info. @ -67-year-old female with central chest discomfort. EKG sinus rhythm without ST segment elevation. Chest x-ray is clear. She has normal CBC, normal CMP, negative initial troponin. She will be observed for serial cardiac enzymes, telemetry, cardiology consultation. Case discussed with Dr. Pelletier who will admit Undiagnosed new problem with uncertain prognosis? @ -No Drug Therapy requiring intensive monitoring for toxicity (Heparin, Nitro, Insulin, Cardizem)? @ -No Were any procedures done? @ -No Diagnosis/symptom? @Chest pain rule out Acute, or Chronic, or Acute on Chronic? @ -Acute Uncomplicated (without systemic symptoms) or Complicated (systemic symptoms)? @ -Default Side effects of treatment? @ -No Exacerbation, Progression, or Severe Exacerbation? @ -No Poses a threat to life or bodily function? How? (Chest pain, USA, ND, pneumonia, PE, COPD, DKA, ARF, appy, cholecystitis, CVA, Diverticulitis, Homicidal, Suicidal, threat to staff... and all critical care pts) @Yes, ACS - Lab Data Result diagrams: 07/28/23 00:35 07/28/23 00:35 Lab Results 05/12/24 05/12/24 05/12/24 Range/Units 00:35 00:35 00:35 WBC 12.6 H (3.8-10.6) k/uL RBC 5.18 (3.80-5.40) m/uL Hgb 14.3 (11.4-16.0) gm/dL Hct 45.2 (34.0-46.0) % MCV 87.3 (80.0-100.0) fL MCH 27.6 (25.0-35.0) pg MCHC 31.6 (31.0-37.0) g/dL RDW 12.9 (11.5-15.5) % Plt Count 308 (150-450) k/uL MPV 7.0 Neutrophils % 61 % Lymphocytes % 29 % Monocytes % 4 % Eosinophils % 3 % Basophils % 1 % Neutrophils # 7.7 (1.3-7.7) k/uL Lymphocytes # 3.6 (1.0-4.8) k/uL Monocytes # 0.6 (0-1.0) k/uL Eosinophils # 0.4 (0-0.7) k/uL Basophils # 0.1 (0-0.2) k/uL PT 10.2 (10.0-12.5) sec INR 0.9 (<1.2) APTT 25.5 (22.0-30.0) sec D-Dimer 0.45 (<0.60) mg/L FEU Sodium 139 (137-145) mmol/L Potassium 4.0 (3.5-5.1) mmol/L Chloride 104 (98-107) mmol/L Carbon Dioxide 25 (22-30) mmol/L Anion Gap 10 mmol/L BUN 20 H (7-17) mg/dL Creatinine 0.72 (0.52-1.04) mg/dL Est GFR (CKD-EPI)AfAm >90 (>60 ml/min/1.73 sqM) Est GFR (CKD-EPI)NonAf 89 (>60 ml/min/1.73 sqM) Glucose 95 (74-99) mg/dL Calcium 9.7 (8.4-10.2) mg/dL Magnesium 1.9 (1.6-2.3) mg/dL Total Bilirubin 0.5 (0.2-1.3) mg/dL AST 28 (14-36) U/L ALT 24 (4-34) U/L Alkaline Phosphatase 124 (38-126) U/L Troponin I (0.000-0.034) ng/mL Total Protein 7.3 (6.3-8.2) g/dL Albumin 4.5 (3.5-5.0) g/dL Lipase 129 (23-300) U/L 07/28/23 Range/Units 00:35 WBC (3.8-10.6) k/uL RBC (3.80-5.40) m/uL Hgb (11.4-16.0) gm/dL Hct (34.0-46.0) % MCV (80.0-100.0) fL MCH (25.0-35.0) pg MCHC (31.0-37.0) g/dL RDW (11.5-15.5) % Plt Count (150-450) k/uL MPV Neutrophils % % Lymphocytes % % Monocytes % % Eosinophils % % Basophils % % Neutrophils # (1.3-7.7) k/uL Lymphocytes # (1.0-4.8) k/uL Monocytes # (0-1.0) k/uL Eosinophils # (0-0.7) k/uL Basophils # (0-0.2) k/uL PT (10.0-12.5) sec INR (<1.2) APTT (22.0-30.0) sec D-Dimer (<0.60) mg/L FEU Sodium (137-145) mmol/L Potassium (3.5-5.1) mmol/L Chloride (98-107) mmol/L Carbon Dioxide (22-30) mmol/L Anion Gap mmol/L BUN (7-17) mg/dL Creatinine (0.52-1.04) mg/dL Est GFR (CKD-EPI)AfAm (>60 ml/min/1.73 sqM) Est GFR (CKD-EPI)NonAf (>60 ml/min/1.73 sqM) Glucose (74-99) mg/dL Calcium (8.4-10.2) mg/dL Magnesium (1.6-2.3) mg/dL Total Bilirubin (0.2-1.3) mg/dL AST (14-36) U/L ALT (4-34) U/L Alkaline Phosphatase (38-126) U/L Troponin I <0.012 (0.000-0.034) ng/mL Total Protein (6.3-8.2) g/dL Albumin (3.5-5.0) g/dL Lipase (23-300) U/L Disposition Clinical Impression: Chest pain Disposition: ADMITTED IP TO THIS HOSP Condition: Stable Is patient prescribed a controlled substance at d/c from ED?: No Referrals: Evelyn Gates MD [Primary Care Provider] - 1-2 days Time of Disposition: 02:53
[2023-07-28] MEDS: MORPHINE SULFATE 2 MG/ML SYRINGE IVP STA ×2 (00:55→02:49)
[2023-07-28 01:00] LABS: Basophils # (A) 0.1 k/uL (0-0.2); Basophils % (A) 1 %; Eosinophils # (A) 0.4 k/uL (0-0.7); Eosinophils % (A) 3 %; HCT 45.2 % (34.0-46.0); HGB 14.3 gm/dL (11.4-16.0); Lymphocytes # (A) 3.6 k/uL (1.0-4.8); Lymphocytes % (A) 29 %; MCH 27.6 pg (25.0-35.0); MCHC 31.6 g/dL (31.0-37.0); MCV 87.3 fL (80.0-100.0); Monocytes # (A) 0.6 k/uL (0-1.0); Monocytes % (A) 4 %; Neutrophils # (A) 7.7 k/uL (1.3-7.7); Neutrophils % (A) 61 %; Platelet Count 308 k/uL (150-450); RBC 5.18 m/uL (3.80-5.40); RDW 12.9 % (11.5-15.5); WBC 12.6 k/uL (3.8-10.6)
[2023-07-28 01:17] LABS: ALT 24 U/L (4-34); AST 28 U/L (14-36); African American GFR (CKD) >90 (>60 ml/min/1.73 sqM); Albumin 4.5 g/dL (3.5-5.0); Alkaline Phosphatase 124 U/L (38-126); Anion Gap 10 mmol/L; Blood Urea Nitrogen 20 mg/dL (7-17); Calcium 9.7 mg/dL (8.4-10.2); Carbon Dioxide 25 mmol/L (22-30); Chloride 104 mmol/L (98-107); Glucose 95 mg/dL (74-99); Lipase 129 U/L (23-300); Magnesium 1.9 mg/dL (1.6-2.3); Non-African American GFR(CKD) 89 (>60 ml/min/1.73 sqM); Sodium 139 mmol/L (137-145); Total Bilirubin 0.5 mg/dL (0.2-1.3); Total Protein 7.3 g/dL (6.3-8.2)
[2023-07-28 01:20] LABS: INR 0.9 (<1.2); Partial Thromboplastin Time 25.5 sec (22.0-30.0); Prothrombin Time 10.2 sec (10.0-12.5)
--- NOTE | 2023-07-28 02:13 | XR ---
EXAM: XR Chest, 2 Views CLINICAL HISTORY: ITS.REASON XR Reason: Chest Pain TECHNIQUE: Frontal and lateral views of the chest. COMPARISON: No relevant prior studies available. FINDINGS: Lungs: No consolidation or mass. Pleural space: No effusion. Heart: No cardiomegaly. Bones/joints: No acute findings. IMPRESSION: No acute cardiopulmonary process.
[2023-07-28] MEDS: ASPIRIN 325 MG TAB PO STA (02:47)
[2023-07-28] MEDS ORDERED: MORPHINE SULFATE 4 MG/ML SYRINGE IV PRN (02:50)
[2023-07-28] MEDS ORDERED: ACETAMINOPHEN TAB 325 MG TAB PO PRN (02:50)
[2023-07-28] MEDS ORDERED: NALOXONE 0.4 MG/ML 1 ML VIAL IV PRN (02:50)
[2023-07-28] MEDS ORDERED: MORPHINE SULFATE 2 MG/ML SYRINGE IV PRN (02:52)
[2023-07-28 04:47] VITALS: PULSE 84; RESP 16
[2023-07-28] MEDS ORDERED: CALCIUM CARBONATE 500 MG CHEWABLE PO PRN (06:41)
--- NOTE | 2023-07-28 06:47 | P.HPIM ---
History of Present Illness H&P Date: 07/28/23 Chief Complaint: Chest pain 67-year-old female hyperlipidemia CVA, history of hypotension on midodrine Patient coming in complaining of chest pain. She had dinner last night outside the house ate some nachos went home she was feeling fine as she was getting ready to get in bed and laying down she started feeling heartburn started around 11 PM and lasted for few hours she was concerned and decided to come into the hospital for evaluation she describes the pain as burning sensation retrosternal extending all the way to the neck denies any associated dizziness lighthead edness palpitation shortness of breath nausea or vomiting. She denies any history of GERD denies any GI bleeding denies any melena. She denies any fevers chills denies any upper respiratory infection symptoms denies any recent travel or hospital stay denies any history of blood clots. Patient denies any cardiac history. She does have history of stroke. Patient quit smoking a year ago denies any drugs or alcohol At time of my evaluation patient feeling fine and asymptomatic review of systems Pertinent positives as noted in HPI. All other systems were reviewed and are negative on exam Constitutional: No acute distress, conversant, pleasant Eyes: Anicteric sclerae, moist conjunctiva, Pupils equal round reactive to light ENMT: NC/AT Oropharynx clear, no erythema, or exudates Neck: Supple, no masses, or JVD No carotid bruits No thyromegaly Lungs: Clear to auscultation Clear to percussion Normal respiratory effort, no accessory muscle use Cardiovascular: Heart regular in rate and rhythm, No murmurs, gallops, or rubs No peripheral edema Abdominal: Soft Nontender, no guarding, rebound or rigidity Abdomen moving with respiration Normoactive bowel sounds Extremities: No digital cyanosis No clubbing Pedal pulses intact and symmetrical Radial pulses intact and symmetrical No calf tenderness Psychiatric: Alert and oriented to person, place and time Appropriate affect fair judgement Neuro Muscles Strength 5/5 in all 4 extremities Sensation to light touch grossly present throughout Cranial nerves II-XII grossly intact Past Medical History Past Medical History: CVA/TIA, Hyperlipidemia Additional Past Medical History / Comment(s): low BP, pt takes midodrine x3 day History of Any Multi-Drug Resistant Organisms: None Reported Past Surgical History: No Surgical Hx Reported Past Anesthesia/Blood Transfusion Reactions: No Reported Reaction Past Psychological History: No Psychological Hx Reported Smoking Status: Current every day smoker Past Alcohol Use History: None Reported Past Drug Use History: Marijuana Medications and Allergies Home Medications Medication Instructions Recorded Confirmed Type Aspirin 81 mg PO DAILY #30 tab 09/26/21 Rx Atorvastatin [Lipitor] 80 mg PO DAILY #30 tab 09/26/21 Rx Ticagrelor [Brilinta] 90 mg PO BID #60 tab 09/26/21 Rx Clopidogrel [Plavix] 75 mg PO DAILY #30 tablet 09/29/21 Rx Fludrocortisone [Florinef] 0.05 mg PO DAILY #30 tab 09/29/21 Rx Midodrine [ProAmatine] 5 mg PO AC-TID #90 tab 09/29/21 Rx levETIRAcetam [Keppra] 500 mg PO Q12HR #60 tab 09/29/21 Rx Allergies Allergy/AdvReac Type Severity Reaction Status Date / Time No Known Allergies Allergy Verified 09/24/21 13:36 Physical Exam Vitals: Vital Signs Temp Pulse Pulse Resp BP BP Pulse Ox 07/28/23 03:57 98.1 F 84 16 133/75 97 07/28/23 03:10 85 19 130/65 95 07/28/23 02:10 85 17 127/67 96 07/28/23 01:10 84 15 117/63 95 07/28/23 00:38 86 15 147/70 97 07/28/23 00:11 97.5 F L 94 16 177/110 99 Intake and Output 07/27/23 07/27/23 07/28/23 14:59 22:59 06:59 Other: # Voids 1 Weight 77.111 kg Results CBC & Chem 7: 07/28/23 00:35 07/28/23 00:35 Labs: Abnormal Lab Results - Last 24 Hours (Table) 07/28/23 07/28/23 Range/Units 00:35 00:35 WBC 12.6 H (3.8-10.6) k/uL BUN 20 H (7-17) mg/dL Thrombosis Risk Factor Assmnt - Choose All That Apply Any of the Below Risk Factors Present?: Yes Each Factor Represents 1 point: Obesity (BMI >25) Other Risk Factors: Yes Each Risk Factor Represents 2 Points: Age 61-74 years Other congenital or acquired thrombophilia - If yes, enter type in comment: No Thrombosis Risk Factor Assessment Total Risk Factor Score: 3 Thrombosis Risk Factor Assessment Level: Moderate Risk Assessment and Plan Assessment: 67-year-old female history of stroke, hyperlipidemia and hypotension on midodrine coming in for evaluation of chest pain I discussed the case with ED doctor and accepted the admission for atypical chest pain rule out acute coronary syndrome with anticipated length of stay less than 2 midnights Atypical chest pain rule out acute coronary syndrome Cardiology consult EKG showing no acute ST changes Troponins negative continue to trend Continue with aspirin and Plavix Continue with atorvastatin Nitro as needed Cardiac monitoring Monitor vital signs History of stroke Continue with aspirin Plavix and atorvastatin Verify home medications White count 12.6 hemoglobin 14.3 D-dimer 0.45 unremarkable Sodium 139 potassium 4 BUN 20 creatinine 0.72 Chest x-ray no acute cardiopulmonary process Full code DVT prophylaxis heparin subcu 3 times daily GI prophylaxis Protonix 40 mg p.o. daily
[2023-07-28] MEDS: ASPIRIN 81 MG PO SCH (09:05)
[2023-07-28] MEDS: ATORVASTATIN 80 MG TAB PO SCH (09:05)
[2023-07-28] MEDS: PANTOPRAZOLE 40 MG TABLET PO SCH (09:06)
[2023-07-28] MEDS: HEPARIN SODIUM,PORCINE 5,000 UNIT/ML 1 ML VIAL SQ SCH (09:07)
[2023-07-28] MEDS: CLOPIDOGREL 75 MG TAB PO SCH (09:10)
[2023-07-28] MEDS: SODIUM CHLORIDE 0.9% 1,000 ML IV SCH (09:10)
[2023-07-28] MEDS: levETIRAcetam 500 MG TAB PO SCH (10:23)
[2023-07-28 10:25] VITALS: BP 102/64; TEMP 97.9
--- NOTE | 2023-07-28 11:20 | P.CRDCN ---
History of Present Illness Consult date: 07/28/23 Consult reason: chest pain Chief complaint: Chest pain History of present illness: History of present illness: Patient is a pleasant 67-year-old female with significant past medical history of hyperlipidemia, CVA with residual aphasia, hypotension on midodrine, and carotid stenosis who presents with complaints of chest pain. She does see Dr. Ling in the office. She is pending TCAR procedure with Dr. Myao, she has appointment with him next week to schedule this. She reports that she woke up from chest pain radiating to her neck last night. She describes this as an aching cold sensation, 9/10 pain level. She denies any associated symptoms including shortness of breath, diaphoresis, nausea, palpitations. The pain did last for couple hours and she got morphine a few times in the emergency department. She has not had any prior episodes of chest pain like this. Her blood pressure was elevated at the time in the 170s/100s. She denies history of prior NC or stenting. She did have a prior Cardiolite stress test 05/31/2022 that was normal. EKG shows sinus rhythm, incomplete right bundle branch block, 89 bpm. Chest x-ray with no acute findings. Labs reviewed: WBC 12.6, hemoglobin 14.3, troponin negative x 3, creatinine 0.72. She is feeling better this morning with no further episodes of chest pain. Denies any recent illness. REVIEW OF SYSTEMS: No fever or chills. No cough or expectoration. No diaphoresis. Patient denies headache, dizziness, blurred vision, double vision. Patient denies any stomach discomfort. No nausea, vomiting. No hematochezia. No hematemesis. Denies any black stools or blood in his stools. Denies dysuria or hematuria. No muscle weakness or numbness. No chest pain or pressure. PHYSICAL EXAMINATION: This is a 67-year-old female in no apparent distress at the time of my examination. HEENT: Head is atraumatic, normocephalic. Pupils are equal, round. Sclerae an icteric. Conjunctivae are clear. Mucous membranes of the mouth are moist. Neck is supple. There is no jugular venous distention. No carotid bruit is heard. CHEST EXAMINATION: Lungs are clear to auscultation. No chest wall tenderness is noted on palpation or with deep breathing. HEART EXAMINATION: Heart regular rate and rhythm. S1, S2 heard. No murmurs, gallops or rub. ABDOMEN: Soft, nontender. Bowel sounds are heard. EXTREMITIES: 2+ peripheral pulses with no evidence of peripheral edema and no calf tenderness noted. NEUROLOGIC EXAMINATION: Patient is awake, alert and oriented x3. She does have some delayed speech. IMPRESSION AND PLAN: History of CVA Hyperlipidemia Carotid stenosis Hypotension Chest pain PLAN: We discussed consideration of repeating stress test tomorrow versus monit oring symptoms and outpatient follow-up with Dr. Ling to reassess cardiac clearance for TCAR procedure. Patient would like to monitor symptoms and follow-up outpatient. She was advised to notify office for any worsening of symptoms. Continue with current home medications. Okay to discharge from a cardiology standpoint. Follow-up with Dr. Ling in 1 week. I am dictating on behalf of Dr. Luis Stephenson's history/physical and assessment/plan. Past Medical History Past Medical History: CVA/TIA, Hyperlipidemia Additional Past Medical History / Comment(s): low BP, pt takes midodrine x3 day History of Any Multi-Drug Resistant Organisms: None Reported Past Surgical History: No Surgical Hx Reported Past Anesthesia/Blood Transfusion Reactions: No Reported Reaction Past Psychological History: No Psychological Hx Reported Smoking Status: Current every day smoker Past Alcohol Use History: None Reported Past Drug Use History: Marijuana Medications and Allergies Home Medications Medication Instructions Recorded Confirmed Type Aspirin 81 mg PO DAILY #30 tab 09/26/21 07/28/23 Rx Atorvastatin [Lipitor] 80 mg PO DAILY #30 tab 09/26/21 07/28/23 Rx levETIRAcetam [Keppra] 500 mg PO Q12HR #60 tab 09/29/21 07/28/23 Rx Midodrine [ProAmatine] 5 mg PO TID 07/28/23 07/28/23 History Allergies Allergy/AdvReac Type Severity Reaction Status Date / Time No Known Allergies Allergy Verified 07/28/23 09:42 Physical Exam Vitals: Vital Signs Temp Pulse Pulse Resp BP BP Pulse Ox 07/28/23 10:23 102/64 07/28/23 08:00 84 16 07/28/23 07:44 97 07/28/23 07:00 97.9 F 64 16 84/56 96 07/28/23 03:57 98.1 F 84 16 133/75 97 07/28/23 03:10 85 19 130/65 95 07/28/23 02:10 85 17 127/67 96 07/28/23 01:10 84 15 117/63 95 07/28/23 00:38 86 15 147/70 97 07/28/23 00:11 97.5 F L 94 16 177/110 99 Intake and Output 07/27/23 07/28/23 07/28/23 22:59 06:59 14:59 Other: Voiding Method Toilet # Voids 1 Weight 77.111 kg Results 07/28/23 00:35 07/28/23 00:35 Cardiac Enzymes 07/28/23 07/28/23 07/28/23 Range/Units 00:35 00:35 03:54 AST 28 (14-36) U/L Troponin I <0.012 <0.012 (0.000-0.034) ng/mL 07/28/23 Range/Units 05:21 AST (14-36) U/L Troponin I <0.012 (0.000-0.034) ng/mL Coagulation 07/28/23 Range/Units 00:35 PT 10.2 (10.0-12.5) sec APTT 25.5 (22.0-30.0) sec CBC 07/28/23 Range/Units 00:35 WBC 12.6 H (3.8-10.6) k/uL RBC 5.18 (3.80-5.40) m/uL Hgb 14.3 (11.4-16.0) gm/dL Hct 45.2 (34.0-46.0) % Plt Count 308 (150-450) k/uL Comprehensive Metabolic Panel 07/28/23 Range/Units 00:35 Sodium 139 (137-145) mmol/L Potassium 4.0 (3.5-5.1) mmol/L Chloride 104 (98-107) mmol/L Carbon Dioxide 25 (22-30) mmol/L BUN 20 H (7-17) mg/dL Creatinine 0.72 (0.52-1.04) mg/dL Glucose 95 (74-99) mg/dL Calcium 9.7 (8.4-10.2) mg/dL AST 28 (14-36) U/L ALT 24 (4-34) U/L Alkaline Phosphatase 124 (38-126) U/L Total Protein 7.3 (6.3-8.2) g/dL Albumin 4.5 (3.5-5.0) g/dL Current Medications Generic Name Dose Route Start Last Admin Trade Name Freq PRN Reason Stop Dose Admin Acetaminophen 650 mg 07/28/23 02:50 Acetaminophen Tab 325 Mg Tab PO Q6HR PRN Mild Pain or Fever > 100.5 Aspirin 81 mg 07/28/23 09:00 07/28/23 09:05 Aspirin 81 Mg PO 81 mg DAILY BOBBI Administration Atorvastatin Calcium 80 mg 07/28/23 09:00 07/28/23 09:05 Atorvastatin 80 Mg Tab PO 80 mg DAILY BOBBI Administration Calcium Carbonate/Glycine 500 mg 07/28/23 06:41 Calcium Carbonate 500 Mg Chewable PO QID PRN Heartburn Clopidogrel Bisulfate 75 mg 07/28/23 09:00 07/28/23 09:10 Clopidogrel 75 Mg Tab PO Not Given DAILY BOBBI Heparin Sodium (Porcine) 5,000 unit 07/28/23 08:00 07/28/23 09:07 Heparin Sodium,Porcine 5,000 Unit/Ml 1 Ml Vial SQ Not Given Q8HR BOBBI Sodium Chloride 1,000 mls @ 75 mls/hr 07/28/23 06:45 07/28/23 09:10 Saline 0.9% IV Not Given .[id number] BOBBI Levetiracetam 500 mg 07/28/23 09:30 07/28/23 10:23 Levetiracetam 500 Mg Tab PO 500 mg Q12HR BOBBI Administration Midodrine 5 mg 07/28/23 16:00 Midodrine 5 Mg Tab PO TID BOBBI Morphine Sulfate 2 mg 07/28/23 02:52 Morphine Sulfate 2 Mg/Ml Syringe IV Q3HR PRN Severe Pain (Scale 7 to 10) Naloxone HCl 0.2 mg 07/28/23 02:50 Naloxone 0.4 Mg/Ml 1 Ml Vial IV Q2M PRN Opioid Reversal Pantoprazole Sodium 40 mg 07/28/23 07:30 07/28/23 09:06 Pantoprazole 40 Mg Tablet PO Not Given [facility] Intake and Output 07/27/23 07/28/23 07/28/23 22:59 06:59 14:59 Other: Voiding Method Toilet # Voids 1 Weight 77.111 kg 07/28/23 00:35 07/28/23 00:35
--- NOTE | 2023-07-28 12:09 | P.DS ---
Providers Date of admission: 07/28/23 02:50 Expected date of discharge: 07/28/23 Attending physician: Cristofer Pelletier MD Consults: 07/28/23 06:47 Consult Physician Routine Consulting Provider: Toy Shaikh Consult Reason/Comments: chest pain Do you want consulting provider notified?: Yes Primary care physician: [facility] Hospital Course: Discharge Diagnosis: Chest pain, acute coronary event ruled out. Troponins trended all negative at less than 0.012 x 3 draws. EKG showing sinus mechanism with no signs of ischemia. Patient evaluated by cardiology and was cleared from cardiac perspective for discharge with no medication changes made at this time. Matthew nt's description of burning sensation in chest started after eating nachos for dinner, concerning for possible acid reflux. Patient being discharged home on Protonix 40 mg daily. Patient to follow-up with PCP in 1 to 2 days and with cardiology in 1 week. She was instructed to return to the emergency department if chest pain recurred. Hypotension. Continue daily medication regimen with midodrine 5 mg 3 times daily. Hyperlipidemia. Continue daily medication regimen with atorvastatin 80 mg daily. Nicotine dependence, recommend smoking cessation History of CVA/TIA Hospital Course: Patient is a very pleasant 67-year-old female with a past medical history of hyperlipidemia, hypotension on midodrine, CVA/TIA, and nicotine dependence. She presented to the emergency department on 07/28/2023 secondary to complaints of chest pain. Upon arrival to our facility, patient underwent evaluation. Vital signs upon arrival show blood pressure 177/110, heart rate 94, respiratory rate 16, temp 97.5 F, and SpO2 of 99% on room air. EKG was completed showing normal sinus rhythm at 89 bpm with an incomplete right bundle branch block with QRS of 101 ms and no significant noted T wave or ST abnormalities upon personal review and interpretation.. Chest x-ray was negative for acute cardiopulmonary process. Labs were completed and reviewed. CBC showing mild leukocytosis with WBC count of 12.6 otherwise normal findings. Coagulation profile and D-dimer were normal findings. BMP showing mild prerenal azotemia with BUN of 20 otherwise normal findings. Magnesium 1.9. Liver profile unremarkable. Troponin was negative at less than 0.012. Patient was admitted under our services with consultation to cardiology. Troponins trended overnight all negative at less than 0.012 x 3 draws. Patient was evaluated by cardiology, they discussed repeating of stress testing tomorrow versus discharge home and following up in their office in [address] Ling to assess cardiac clearance for TCAR procedure. Patient wanted to be discharged and follow-up outpatient in office with her medical technician assistant, Dr. Ling. Patient is free from any further episodes of chest pain/discomfort. Patient's previous description of burning in chest suspicious for acid reflux. Patient being discharged home on PPI with Protonix 40 mg daily. Patient instructed to return to the emergency department immediately if she develops any further episodes of chest pain/discomfort. She is medically stable for discharge at this time and to follow-up outpatient with PCP in 1 to 2 days and with medical technician assistant in 1 week. Physical exam: Vital signs reviewed and stable. General: Nontoxic, no distress and appears stated age. Derm: Skin warm and dry, normal coloration for ethnicity. Head: Atraumatic, normocephalic and symmetric. Eyes: EOMs intact, no lid lag, and anicteric sclera Mouth: no lip lesions, mucus membranes moist. Cardiovascular: regular rate and rhythm with normal S1S2, no murmur, positive posterior tibial pulses bilaterally, and cap refill < 2 seconds. Lungs: Respirations even, regular, and unlabored on room air. Lungs CTA bilaterally, no rhonchi, no rales, no wheezing, and no accessory muscle usage. Abdominal: soft, nontender to palpation, no guarding, no appreciable organomegaly. Ext: ROM intact. No gross muscle atrophy, no edema, no contractures. Neuro: Speech clear, face symmetrical and CN II-XII grossly intact with no noted focal neuro deficits Psych: Alert and oriented to person, place, time, and situation. Appropriate and pleasant affect. A total of 33 minutes of time were spent preparing this complex discharge summary. Pt was discharged on 07/28/2023 at 11:41 AM. Patient was seen independently by Nurse Practitioner. This document was prepared using Audience dictation software. Please allow for errors in sales clerk supervisor while rare they do occur. I reviewed the documentation as provided by the THEODORA above, who is the original author of this note. I agree with the documented assessment and plan, with the following changes: none Patient Condition at Discharge: Stable Plan - Discharge Summary New Discharge Prescriptions: New Pantoprazole [Protonix] 40 mg PO AC-BRKFST 30 Days #30 tab Continue Aspirin 81 mg PO DAILY #30 tab Atorvastatin [Lipitor] 80 mg PO DAILY #30 tab levETIRAcetam [Keppra] 500 mg PO Q12HR #60 tab Midodrine [ProAmatine] 5 mg PO TID Discharge Medication List Aspirin 81 mg PO DAILY #30 tab 09/26/21 [Rx] Atorvastatin [Lipitor] 80 mg PO DAILY #30 tab 09/26/21 [Rx] levETIRAcetam [Keppra] 500 mg PO Q12HR #60 tab 09/29/21 [Rx] Midodrine [ProAmatine] 5 mg PO TID 07/28/23 [History] Pantoprazole [Protonix] 40 mg PO AC-BRKFST 30 Days #30 tab 07/28/23 [Rx] Follow up Appointment(s)/Referral(s): Cici Ling MD [STAFF PHYSICIAN] - 1 Week Evelyn Gates MD [Primary Care Provider] - 1-2 days Patient Instructions/Handouts: Chest Pain (DC), How to Stop Smoking (DC) Activity/Diet/Wound Care/Special Instructions: Activity: As tolerated. Take breaks as needed. Diet: Heart healthy and carb consistent diet. Avoid salts, or foods with hidden salts such as canned or boxed foods and frozen dinners. Extra salt makes your heart work harder and traps the fluid in your body for longer. Special Instructions: Take all of your medications as directed and remember to keep all of your doctor's appointments and follow-up as needed. Return to the emergency department or call medical technician assistant immediately if you develop any further episodes of chest pain, palpitations, or shortness of breath. Wishing you a blessed and wonderful Mother's Day! Thank you for allowing us to participate in your care, it was truly a pleasure having you for our patient!!! Discharge Disposition: HOME SELF-CARE
[2023-07-28] MEDS ORDERED: MIDODRINE 5 MG TAB PO SCH (16:00)
== END 2023-07-28 12:43 | disposition home or self-care (01) ==
LOC: EC 00:08 → 6NMEDSUR 02:50
PROVIDERS: ADMIT Internal Medicine; ATTEND Internal Medicine
DX: R07.89 Other chest pain (principal); I95.9 Hypotension, unspecified; I45.10 Unspecified right bundle-branch block; E78.5 Hyperlipidemia, unspecified; I65.29 Occlusion and stenosis of unspecified carotid artery; I69.320 Aphasia following cerebral infarction; R03.0 Elevated blood-pressure reading, without diagnosis of hypertension; R12 Heartburn; M54.2 Cervicalgia; D72.829 Elevated white blood cell count, unspecified; R79.89 Other specified abnormal findings of blood chemistry; E66.9 Obesity, unspecified; Z68.27 Body mass index [BMI] 27.0-27.9, adult; F17.200 Nicotine dependence, unspecified, uncomplicated; Z79.02 Long term (current) use of antithrombotics/antiplatelets; Z79.82 Long term (current) use of aspirin; Z79.52 Long term (current) use of systemic steroids; Z79.899 Other long term (current) drug therapy
CPT/HCPCS: 96376; 96374; 99285; 36415; 94760; 93005; 85379; 80053; 83690; 83735; 84484; 85025; 85610; 85730; 71046; G0378; J2270

== ENCOUNTER 2023-09-09 07:47 | Inpatient (IN) | payer MEDICARE ==
[2023-09-09] MEDS ORDERED: ONDANSETRON 4 MG/2 ML VIAL IVP PRN (08:00)
[2023-09-09] MEDS ORDERED: HYDROmorphone 0.5 MG/0.5 ML SYRINGE IVP PRN (08:00)
[2023-09-09] MEDS ORDERED: LIDOCAINE 1% (10MG/ML) FOR IV START INTRADERMA PRN (08:00)
[2023-09-09 08:17] VITALS: RESP 16
[2023-09-09] MEDS: IV FLUID CONTINUATION 1,000 ML IV ONE ×2 (08:20→08:30)
[2023-09-09] MEDS: LACTATED RINGERS 1,000 ML IV SCH ×2 (08:20→18:41)
[2023-09-09 08:44] LABS: Basophils % (A) 1 %; Eosinophils # (A) 0.4 k/uL (0-0.7); Eosinophils % (A) 7 %; HCT 42.9 % (34.0-46.0); HGB 13.5 gm/dL (11.4-16.0); Lymphocytes % (A) 35 %; MCH 27.7 pg (25.0-35.0); MCHC 31.5 g/dL (31.0-37.0); MCV 88.1 fL (80.0-100.0); Mean Platelet Volume 6.9; Monocytes # (A) 0.4 k/uL (0-1.0); Monocytes % (A) 6 %; Neutrophils # (A) 2.8 k/uL (1.3-7.7); Neutrophils % (A) 49 %; Platelet Count 297 k/uL (150-450); RBC 4.87 m/uL (3.80-5.40); RDW 13.3 % (11.5-15.5); WBC 5.7 k/uL (3.8-10.6)
[2023-09-09] MEDS ORDERED: NITROGLYCERIN-D5W PMX 50 MG in DEXTROSE/WATER 1 250ML.BAG IV SCH (08:45)
[2023-09-09] MEDS: MIDAZOLAM 2 MG/2 ML VIAL IV ONE (08:45)
--- NOTE | 2023-09-09 09:01 | P.ANPRN ---
Procedure Note - Anesthesia - Invasive Line Right Arterial Line Time Out Performed: Yes Date of Procedure: 09/09/23 Time of Procedure: 08:46 Location of Patient: PreOp Preparation: Sterile Prep, Sterile Dressing Arterial Line Location: Radial Ultrasound Used: Yes Purpose - Visualization and Identification of Vasculature: Yes Image Stored and Saved: Yes Narrative: Invasive line placement per sterile protocol utilized.[email or web address].
[2023-09-09] MEDS: ONDANSETRON 4 MG/2 ML VIAL IVP ONE (09:10)
[2023-09-09] MEDS: DEXAMETHASONE SOD PHOSPHATE 4 MG/ML 1 ML VIAL IV ONE (09:11)
[2023-09-09] MEDS ORDERED: MIDAZOLAM 2 MG/2 ML VIAL ONE (09:57)
[2023-09-09] MEDS ORDERED: HEPARIN SODIUM,PORCINE 10,000 UNIT/ML 1 ML VIAL ONE (09:57)
[2023-09-09] MEDS ORDERED: LIDOCAINE 1% INJ 10MG/ML (20 ML MDV) ONE (09:57)
[2023-09-09] MEDS ORDERED: NEOSTIGMINE 1 MG/ML 10 ML VIAL ONE (09:57)
[2023-09-09] MEDS ORDERED: PHENYLEPHRINE 10 MG/ML VIAL ONE (09:57)
[2023-09-09] MEDS ORDERED: PROTAMINE SULFATE 10 MG/ML 5 ML VIAL ONE (09:57)
[2023-09-09] MEDS ORDERED: ROCURONIUM 10 MG/ML (5 ML VIAL) IV ONE (09:57)
[2023-09-09] MEDS ORDERED: fentaNYL (PF) 50 MCG/ML 2 ML AMP ONE (09:57)
[2023-09-09] MEDS ORDERED: SUCCINYLCHOLINE CHLORIDE 200 MG/10 ML VIAL IV ONE (09:57)
[2023-09-09] MEDS ORDERED: PROPOFOL 10 MG/ML 20 ML VIAL IV ONE (09:57)
[2023-09-09] MEDS ORDERED: GLYCOPYRROLATE 0.2 MG/ML 2 ML VIAL ONE (09:57)
[2023-09-09] MEDS: HEPARIN SODIUM (1,000 UNIT/ML) 2,000 UNIT in SODIUM CHLORIDE 0.9% 1,000 ML IRRIGATION ONE (10:37)
[2023-09-09] MEDS: ceFAZolin 2 GM in SODIUM CHLORIDE 0.9% 500 ML 500 ML IRRIGATION ONE (10:38)
[2023-09-09] MEDS: LIDOCAINE 1% INJ 10MG/ML (20 ML MDV) SQ ONE (10:38)
[2023-09-09] MEDS: THROMBIN (BOVINE) 5,000 UNIT VIAL TOPICAL ONE (10:57)
[2023-09-09] MEDS: LACTATED RINGERS 1,000 ML IV ONE ×2 (11:32→12:29)
[2023-09-09] MEDS ORDERED: TRIMETHOBENZAMIDE 100 MG/ML 2 ML VIAL IM PRN (12:36)
[2023-09-09] MEDS ORDERED: MAG HYDROX/AL HYDROX/SIMETH 30 ML CUP PO PRN (12:36)
[2023-09-09] MEDS ORDERED: MORPHINE SULFATE 2 MG/ML SYRINGE IVP PRN (12:36)
[2023-09-09] MEDS ORDERED: BENZOCAINE/MENTHOL LOZENG 1 EACH LOZENGE MUCOUS MEM PRN (12:36)
--- NOTE | 2023-09-09 12:36 | P.OP ---
Description of Procedure: Date of Procedure: 09/09/2023 Preoperative Diagnosis: Left internal carotid artery stenosis Postoperative Diagnosis: Same Procedure(s) Performed: Left carotid endarterectomy with patch angioplasty Anesthesia: MALLORIE Surgeon: Jose Carlos Mayo Estimated Blood Loss (ml): 50 cc Pathology: Left carotid plaque Condition: stable Disposition: PACU Indications for Procedure: 67-year-old female with history of stroke, speech issues as well as thrombosed, occluded right common carotid artery with previously occluded left carotid artery presented to the office for evaluation and on her images it was noted that she had 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 Description of Procedure: After written informed consent was obtained the patient all risks benefits and competitions were described the patient is brought to the operative suite and laid in a supine position. The area of the neck was prepped and draped in usual sterile fashion after appropriate anesthetic was performed per the anesthesiologist. A timeout was performed in normal fashion antibiotics were administered prior to incision. An oblique incision was then created just anterior to the sternocleidomastoid musculature with a 10 blade scalpel and dissection was carried down to the carotid sheath. The carotid sheath was then entered after facial vein was located and suture ligated in normal fashion. The common carotid, internal carotid, external carotid and superior thyroid arteries were located and dissected free in a meticulous fashion circumferentially and controlled with vessel loops. Attention was then placed to locating the vagus nerve as well as hypoglossal nerve which were both spared. Once controlled patient was administered heparin and followed with ACTs for appropriate heparinization. Once ACT was above 200 the proximal and distal aspects of the dissection were then controlled with vascular clamps. Arteriotomy was then created with 11 blade scalpel and extended with Spence Bobby scissors. Utilizing pressure tubing stump pressures were obtained and were 75. No shunt was required and endarterectomy was then performed with a [place] and elevator. The plaque was then feathered at the distal aspect and the internal carotid artery and removed. The area was copiously irrigated with heparinized saline and all free debris was removed. A 7-0 Prolene suture was then placed to tack the distal aspect of the dissection at the internal carotid artery. A 0.8 x 8 cm bovine pericardial patch was then chosen and patch angioplasty was performed with 6-0 Prolene suture in a running fashion. Prior to last sutures being placed the inflow was released flushing any free debris out of the patch. This was reclamped and the internal carotid artery was released revealing good brisk flow and was once again reclamped. The external carotid and superior thyroid artery were then released followed by the common carotid artery to allow any free debris to be flushed into the external system. Final sutures were placed and secured. Internal carotid artery control was then released. Good pulsatile flow was noted through the patch and a Doppler was utilized demonstrating good brisk flow into the internal, external carotid arteries without any signs of obstruction. Hemostasis was then assured with Gelfoam and thrombin. A 10-Kiswahili TOYA drain was then placed in normal fashion and secured with 3-0 nylon suture. The incision was then closed in a multilayer fashion after hemostasis was assured. The skin was then cleansed and dressings were placed. Patient tolerated the procedure well and was following commands and moving all extremities. Patient was then sent to PACU for recovery.
[2023-09-09] MEDS ORDERED: ARTIFICIAL TEARS-HYPROMELLOSE DROPS 15 ML BTL RIGHT EYE PRN (15:51)
[2023-09-09] MEDS: hydrALAZINE HCL 20 MG/ML 1 ML VIAL IVP STA (18:40)
[2023-09-09] MEDS: PHENYLEPHRINE 40 MG in SODIUM CHLORIDE 0.9% 250 ML IV SCH (18:41)
[2023-09-09] MEDS: ACETAMINOPHEN TAB 325 MG TAB PO PRN (21:45)
[2023-09-09] MEDS: levETIRAcetam 500 MG TAB PO SCH (21:45)
[2023-09-10] MEDS: MIDODRINE 5 MG TAB PO SCH (09:06)
[2023-09-10] MEDS: ENOXAPARIN 40 MG/0.4 ML SYRINGE SQ SCH (09:06)
[2023-09-10] MEDS: ATORVASTATIN 80 MG TAB PO SCH (09:06)
[2023-09-10] MEDS: ASPIRIN 81 MG PO SCH (09:06)
--- NOTE | 2023-09-10 09:06 | P.CONS ---
History of Present Illness - Reason for Consult Consult date: 09/10/23 Medical Management Requesting physician: Jose Carlos Mayo - History of Present Illness History of Presenting Illness: Patient is a very pleasant 67-year-old female with a past medical history of hyperlipidemia, hypotension on midodrine, previous CVA with speech deficits and carotid artery stenosis. She is currently admitted under vascular surgery team and underwent a Left carotid endarterectomy with patch angioplasty with Dr. Mayo on 09/09/2023. We were consulted for medical management. Patient seen and fully evaluated at the bedside. Dressing and TOYA drain in place to left lateral neck. Patient reports only mild postoperative pain and currently denies any other complaints at this time. She denies dysphagia and is tolerating clear liquid diet. She denies any postoperative nausea or vomiting, headache, lightheadedness, dizziness, chest pain, palpitations, shortness of breath, or experiencing any numbness/tingling/weakness in her extremities. Review of systems: Pertinent positives and negatives as discussed in HPI, a complete review of systems was performed and all other systems are negative. Physical exam: Vital signs reviewed and stable. General: Nontoxic, no distress and appears stated age. Derm: Skin warm and dry, normal coloration for ethnicity. Head: Atraumatic, normocephalic and symmetric. Eyes: EOMs intact, no lid lag, and anicteric sclera Mouth: no lip lesions, mucus membranes moist Cardiovascular: regular rate and rhythm with normal S1S2, no murmur, positive posterior tibial pulses bilaterally, and cap refill < 2 seconds. Lungs: Respirations even, regular, and unlabored on room air. Lungs CTA bilaterally, no rhonchi, no rales, no wheezing, and no accessory muscle usage. Abdominal: soft, nontender to palpation, no guarding, no appreciable organomegaly Ext: Movement and sensation intact in bilateral upper and lower extremities. No gross muscle atrophy, no edema, no contractures Neuro: Mild aphasia facial droop (chronic baseline from previous CVA), GCS 15 with no noted acute focal neuro deficits Psych: Alert and oriented to person, place, time, and situation. Appropriate and pleasant affect. Assessment and Plan of Care: Status post left carotid endarterectomy with patch angioplasty -Management per primary admitting vascular surgery team including DVT prophylaxis, pain management, wound/dressing/drain management, as well as advancement of diet and activity. History of hypotension, currently with hypertension -Patient may resume midodrine 5 mg 3 times daily, however parameters were set on this medication to hold for systolic pressure greater than 120 and her current blood pressure is 141/84 and her pressures have been elevated throughout hospitalization. Patient informed if these pressures remain elevated she may need to be placed on antihypertensive medication in the near future. Hyperlipidemia Continue daily medication regimen with atorvastatin 80 mg daily. History of CVA with residual aphasia Continue aspirin 81 mg daily and Keppra 500 mg every 12 hours. Encourage patient to follow-up outpatient with occupational therapy for continued therapy with speech and language pathologist. Data and imaging reviewed: Labs reviewed. CBC unremarkable with WBC count 5.7, hemoglobin 13.5, platelet count of 297. Vital signs reviewed and stable. Blood pressure 141/84, heart rate 81, respiratory rate 16, temp 98.1 F, and SpO2 of 98% on room air. Discussed recommendations with vascular surgery THREAD SPOOLER, patient medically optimized for discharge home at this time once cleared by primary admitting vascular surgeon. Thank you for allowing us to participate in the care of this pleasant patient. Do not hesitate to contact us with questions. Someone can be reached from the [facility] hospitalist group all hours of the day at [phone] or via [employer] serve. Patient was seen independently by Nurse Practitioner. This document was prepared using [employer] dictation software. Please allow for errors in radiology transcriptionist while rare they do occur. I reviewed the documentation as provided by the THEODORA above, who is the original author of this note. I agree with the documented assessment and plan, with the following changes: none Past Medical History Past Medical History: CVA/TIA, Hyperlipidemia Additional Past Medical History / Comment(s): hx. low BP, stroke 2021-aphasia is improving, understands ok & can speak a few words @a time, currently sees speech path., mobility good per spouse, recent adm for chest pain-coronary issues ruled out, thought to be possible acid reflux & took protonix for short time History of Any Multi-Drug Resistant Organisms: None Reported Past Surgical History: No Surgical Hx Reported Past Anesthesia/Blood Transfusion Reactions: No Reported Reaction Additional Past Anesthesia/Blood Transfusion Reaction / Comm: pt has never had anesthesia, spouse states no family problems w/anesthesia that their aware of Smoking Status: Former smoker - Past Family History Mother Family Medical History: No Reported History Medications and Allergies Home Medications Medication Instructions Recorded Confirmed Type Aspirin 81 mg PO DAILY #30 tab 09/26/21 09/09/23 Rx Atorvastatin [Lipitor] 80 mg PO DAILY #30 tab 09/26/21 09/09/23 Rx levETIRAcetam [Keppra] 500 mg PO Q12HR #60 tab 09/29/21 09/09/23 Rx Clopidogrel [Plavix] 75 mg PO 1200 09/06/23 09/09/23 History Acetaminophen Tab [Tylenol] 650 mg PO Q4HR PRN tab 09/10/23 Rx Artificial Tears-Hypromellose 2 drops RIGHT EYE QID PRN ml 09/10/23 Rx [Artificial Tear Drops] Midodrine [ProAmatine] 5 mg PO TID #0 09/10/23 09/09/23 Rx Allergies Allergy/AdvReac Type Severity Reaction Status Date / Time No Known Allergies Allergy Verified 09/09/23 08:07 Physical Exam Vitals: Vital Signs Temp Pulse Pulse Resp BP BP Pulse Ox 09/10/23 04:00 98.2 F 88 16 151/80 97 09/10/23 00:00 130/88 09/09/23 21:36 98 F 82 16 144/78 98 09/09/23 19:36 80 16 148/70 98 09/09/23 18:30 98.1 F 84 16 182/77 98 09/09/23 18:20 82 16 186/80 98 09/09/23 16:45 79 16 157/80 96 09/09/23 15:45 62 16 170/76 97 09/09/23 15:15 56 L 16 141/70 100 09/09/23 14:45 61 16 147/75 100 09/09/23 14:15 56 L 16 145/71 99 09/09/23 14:00 59 L 16 98 09/09/23 13:45 61 16 137/66 97 09/09/23 13:30 51 L 16 137/58 97 09/09/23 13:17 56 L 16 155/70 100 09/09/23 13:02 51 L 16 164/79 100 09/09/23 12:47 97.2 F L 83 16 163/78 96 09/09/23 09:03 70 16 134/63 96 09/09/23 08:13 97.1 F L 69 16 152/69 95 Intake and Output 09/09/23 09/10/23 09/10/23 22:59 06:59 14:59 Intake Total 300 577 Output Total 1310 Balance -1010 577 Intake: IV 300 Oral 577 Output: Drainage 10 Left Neck 10 Urine 1300 Other: # Voids 1 3 Weight 76.4 kg Results CBC & Chem 7: 09/09/23 08:30
[2023-09-10 09:15] VITALS: BP 141/84; PULSE 81; TEMP 98.1
--- NOTE | 2023-09-10 09:47 | P.DS ---
Providers Date of admission: 09/09/23 07:47 Expected date of discharge: 09/10/23 Attending physician: Jose Carlos Mayo DO Consults: 09/09/23 14:48 Consult Physician Routine Consulting Provider: Deb Don Consult Reason/Comments: Medical Management, s/p carotid endarterectomy Do you want consulting provider notified?: Yes Primary care physician: [facility] Course: 67-year-old female with history of stroke, speech issues as well as thrombosed, occluded right common carotid artery with previous occluded left carotid artery who was following with vascular surgery in the outpatient setting and images had shown renal cannulization of the left internal carotid artery and dense plaque noted in the bifurcation with greater than 90% stenosis and recommendation for carotid endarterectomy and patch angioplasty was discussed and patient was agreeable. She came in for outpatient left carotid endarterectomy with patch angioplasty. She is postop day #1. She states pain has been well-managed. No difficulty swallowing. No new focal deficits. Blood pressure was elevated through the night and was given hydralazine. Currently stable at this time. S he has been up and ambulating. Voiding without difficulty. TOYA drain with minimal serosanguineous output. Incision left neck well-approximated without any surrounding hematoma or bleeding. Plan is for discharge home today. General appearance: The patient is alert, oriented, appears in no acute distress. HET: Head is normocephalic and atraumatic. Pupils are equal and reactive. Neck: Supple. Left neck with incision well-approximated, no hematoma or bleeding. Heart: Regular. Lungs: Equal expansion, normal respiratory effort. Abdomen: Soft, nondistended. Extremities: Normal skin color and turgor. Neurological: Patient has residual aphasia. Residual right droop to mouth. Upper and lower extremities with good tone and strength. Assessment 1. Left carotid endarterectomy with patch angioplasty 2. Left internal carotid artery stenosis 3. CVA with residual aphasia 4. History hypotension Plan 1. Medical management consulted, appreciate recommendations on blood pressure parameters for midodrine 2. Continue home meds 3. Encourage ambulation 4. TOYA drain discontinued 5. Advance to heart healthy diet 6. Patient is cleared for discharge if tolerates diet 7. Discharge instructions reviewed with patient. All questions answered. Follow-up with Dr. Mayo in 2 weeks. The impression and plan of care has been dictated as directed. Dr. Almonte I performed a history and examination of this patient, discussed the same with the dictator. I agree with the dictator's note ,documented as a scribe. Any additional findings or plans will be noted. Procedures: Left carotid endarterectomy with patch angioplasty Patient Condition at Discharge: Stable Plan - Discharge Summary Discharge Rx Participant: Yes New Discharge Prescriptions: New Acetaminophen Tab [Tylenol] 650 mg PO Q4HR PRN tab PRN Reason: Pain Artificial Tears-Hypromellose [Artificial Tear Drops] 2 drops RIGHT EYE QID PRN ml PRN Reason: Dry Eye(S) Continue Aspirin 81 mg PO DAILY #30 tab Atorvastatin [Lipitor] 80 mg PO DAILY #30 tab Clopidogrel [Plavix] 75 mg PO 1200 Midodrine [ProAmatine] 5 mg PO TID #0 levETIRAcetam [Keppra] 500 mg PO Q12HR #60 tab Discharge Medication List Aspirin 81 mg PO DAILY #30 tab 09/26/21 [Rx] Atorvastatin [Lipitor] 80 mg PO DAILY #30 tab 09/26/21 [Rx] levETIRAcetam [Keppra] 500 mg PO Q12HR #60 tab 09/29/21 [Rx] Clopidogrel [Plavix] 75 mg PO 1200 09/06/23 [History] Acetaminophen Tab [Tylenol] 650 mg PO Q4HR PRN tab 09/10/23 [Rx] Artificial Tears-Hypromellose [Artificial Tear Drops] 2 drops RIGHT EYE QID PRN ml 09/10/23 [Rx] Midodrine [ProAmatine] 5 mg PO TID #0 09/10/23 [Rx] Follow up Appointment(s)/Referral(s): Jose Carlos Mayo DO [STAFF PHYSICIAN] - 2 Weeks Evelyn Gates MD [Primary Care Provider] - 1 Week Patient Instructions/Handouts: Carotid Endarterectomy (DC) Activity/Diet/Wound Care/Special Instructions: Activity: No strenuous activity or heavy lifting greater than 10 pounds. May shower tomorrow but no tub bathing or soaking. Watch incision site for infection including redness, drainage, or temperature greater than 100.4. If you notice he symptoms please call office. No driving for 2 weeks. Diet: Heart healthy and carb consistent diet. Avoid salts, or foods with hidden salts such as canned or boxed foods and frozen dinners. Extra salt makes your heart work harder and traps the fluid in your body for longer. Special Instructions: Take all of your medications as directed and remember to keep all of your doctor's appointments and follow-up as needed. With your Midodrine, it is important to check your blood pressure prior to kalie ing and HOLD this medication if your systolic blood pressure is greater than 120. Thank you for allowing us to participate in your care, it was truly a pleasure having you for our patient!!! . Discharge Disposition: HOME SELF-CARE
[2023-09-10] MEDS ORDERED: CLOPIDOGREL 75 MG TAB PO SCH (12:00)
== END 2023-09-10 11:28 | disposition home or self-care (01) | DRG 39 ==
LOC: 2ORMAIN 07:47 → 3SCARD 17:45
PROVIDERS: ADMIT Surgery; ATTEND Surgery
PROC: 03UL0KZ Supplement Left Internal Carotid Artery with Nonautologous Tissue Substitute, Open Approach (ICD-10-PCS; principal; 2023-09-09 09:35)
PROC: 03CL0ZZ Extirpation of Matter from Left Internal Carotid Artery, Open Approach (ICD-10-PCS; principal; 2023-09-09 09:35)
DX: I65.23 Occlusion and stenosis of bilateral carotid arteries (principal); I10 Essential (primary) hypertension; E78.5 Hyperlipidemia, unspecified; I95.9 Hypotension, unspecified; I69.320 Aphasia following cerebral infarction; Z87.891 Personal history of nicotine dependence; Z79.82 Long term (current) use of aspirin; Z79.899 Other long term (current) drug therapy
CPT/HCPCS: 85025; 86850; 86900; 86901; 88304; 88311

== ENCOUNTER → 2024-02-04 | Outpatient (CLI) | payer MEDICARE | END | disposition home or self-care (01) | LOC: LABWHC1 09:23 | PROVIDERS: ATTEND Psychiatry & Neurology Neurology | DX: R56.9 Unspecified convulsions (principal) | CPT/HCPCS: 36415; 80177 ==

== ENCOUNTER → 2024-07-07 | Outpatient (CLI) | payer MEDICARE ==
--- NOTE | 2024-07-07 09:25 | MM ---
Reason for Exam: Screening (asymptomatic). Last mammogram was performed 3 year(s) and 7 month(s) ago. Patient History: Menarche at age 14. First Full-Term at age 27. Postmenopausal. Risk Values: Paulina 5 year model risk: 1.9%. NCI Lifetime model risk: 6.7%. Tissue Density: There are scattered areas of fibroglandular density. Findings: Analyzed By CAD. There is no suspicious group of microcalcifications or new suspicious mass in either breast. Overall Assessment: Negative, BI-RAD 1 Management: Screening Mammogram of both breasts in 1 year. . Patient should continue monthly self-breast exams. A clinical breast exam by your physician is recommended on an annual basis. This exam should not preclude additional follow-up of suspicious palpable abnormalities. Note on Paulina scores and lifetime risk: 1. A Paulina score greater than 3% is considered moderate risk. If this is the case, consider specialist referral to assess eligibility for a risk reducing agent. 2. If overall lifetime risk for the development of breast cancer is 20% or higher, the patient may qualify for future screening with alternating mammogram and breast MRI. [facility], , 07/07/2024 9:22 AM. Electronically signed and approved by: Dieter Bhandari M.D. Radiologis
== END | disposition home or self-care (01) ==
LOC: RADMAMWWP 07:50
PROVIDERS: ATTEND Family Medicine
DX: Z12.31 Encounter for screening mammogram for malignant neoplasm of breast (principal); R92.323 Mammographic fibroglandular density, bilateral breasts; Z78.0 Asymptomatic menopausal state
CPT/HCPCS: 77063; 77067